=== PATIENT | female | born 1975 ===

== ENCOUNTER 2021-04-08 09:37 | Outpatient (REF) | payer OTHER, SELFPAY ==
[2021-04-08 17:22] LABS: CT PCR NOT DETECTED (Not Detect.); NG PCR NOT DETECTED (Not Detect.)
[2021-04-09 09:43] LABS: BV Int Neg Control Negative (Negative); BV Int Pos Control Positive (Positive)
== END 2021-04-08 09:38 | disposition home or self-care (01) ==
LOC: HO.LAB 09:37
PROVIDERS: Visit Provider Advanced Practice Midwife
DX: Z01.419 Encounter for gynecological examination (general) (routine) without abnormal findings (principal); B37.3 Candidiasis of vulva and vagina; B37.9 Candidiasis, unspecified; J45.909 Unspecified asthma, uncomplicated; Z20.2 Contact with and (suspected) exposure to infections with a predominantly sexual mode of transmission; Z88.0 Allergy status to penicillin; Z79.899 Other long term (current) drug therapy
CPT/HCPCS: 87480; 87491; 87510; 87591; 87660

== ENCOUNTER 2022-04-10 10:56 | Outpatient (REF) | payer OTHER, SELFPAY ==
[2022-04-11 01:21] LABS: CT PCR NOT DETECTED (Not Detect.); NG PCR NOT DETECTED (Not Detect.)
[2022-04-11 08:33] LABS: BV Int Neg Control Negative (Negative); BV Int Pos Control Positive (Positive)
== END 2022-04-10 10:57 | disposition home or self-care (01) ==
LOC: HO.LAB 10:56
PROVIDERS: Visit Provider Advanced Practice Midwife
DX: Z01.419 Encounter for gynecological examination (general) (routine) without abnormal findings (principal); Z11.3 Encounter for screening for infections with a predominantly sexual mode of transmission; Z11.8 Encounter for screening for other infectious and parasitic diseases
CPT/HCPCS: 87480; 87491; 87510; 87591; 87660

== ENCOUNTER 2023-06-17 09:21 | Outpatient (AMB) | payer OTHER, SELFPAY ==
--- NOTE | 2023-06-17 09:24 | MHC.OFFVIS ---
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 Required: No Information Interpreted: non-clinical & clinical Healthcare Liaison: Healthcare Liaison Present (Harjinder) Allergies penicillin V Allergy (Unknown, Verified 06/17/23 09:27) rash Medication List - Last Reconciled 06/17/23 by Celia Contreras CNM albuterol sulfate 90 mcg/actuation 2 puffs inhalation Q6H PRN fluticasone propion-salmeterol 500-50 mcg/dose (Advair Diskus) 1 inh inhalation BID fluticasone propionate 50 mcg/actuation (Flonase Allergy Relief) 1 spray intranasal DAILY Is last menstrual period known: Yes Last menstrual period: 05/15/23 HPI 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 She is sexually active with her she is not worried about any STIs but she excepted testing along with the Pap smear. She does not think she has had a mammogram in a couple of years. She does not do much exercise and she and her her talking about going for daily walk to improve things. She does feel like she eats well. Her only health concern is her asthma and she did have pneumonia last year she does get vaccinated when it is time. [facility] Medical History Asthma Family History Mother HTN (hypertension) Diabetes Father HTN (hypertension) Sleep apnea Social History Alcohol intake: never Patient Tobacco Use Status: Never used Tobacco Gender identity: Female Female Reproductive History Menstrual Age of Menarche: 9 Duration of menses: 8-10 days Date of last menstrual period: 05/15/23 control method: none Total pregnancies: 2 Full term: 2 Number of Living Children: 2 Date of last pap smear: 06/25/18 (negative) Date of Mammogram: 03/19/18 Physical Exam Vital Signs: Last Vital Signs BP 130/80 06/17/23 09:25 BMI result Body Mass Index 35.4 Const General: healthy appearing, comfortable, no acute distress, well developed and alert Nutritional Appearance: average body habitus Orientation/consciousness: patient oriented x3 Limitations: no limitations HEENT Head: Yes normocephalic Neck Neck: Yes normal visual inspection Chest Chest palpation & inspection: normal inspection of the chest Breast/axilla inspection: normal inspection of the breasts and normal inspection of the axillae Breast/axilla palpation: normal palpation of the breasts and normal palpation of the axillae Resp Effort & Inspection: normal respiratory effort GI Inspection: Yes normal to inspection, No Abdominal wall edema and No distended Palpation (GI): Soft to palpation and nontender General: Yes bladder normal to palpation External Female Exam: normal external appearance and normal appearance of the urethra Speculum Exam - Vagina: normal appearance of the vagina, normal palpation and normal vaginal discharge Speculum Exam - Cervix: normal appearance of the cervix, normal palpation and nontender Bimanual exam- vagina & uterus: normal bimanual exam, normal palpation, uterine size normal, bladder normal to palpation, consistency normal, normal palpation, uterine mobility normal, uterine shape normal, No Cervical tenderness present, non-tender and no cervical motion tenderness Bimanual Exam- Adnexa, other: normal adnexae, no masses, normal and No adnexal tenderness Neuro General: patient oriented x3 Assessment & Plan Assessment & Plan (1) Cervical cancer screening: Comment: hx neg paps- last done 2017, due 2022 Code(s): Z12.4 - Encounter for screening for malignant neoplasm of cervix (2) Paty albicans infection: Code(s): B37.9 - Candidiasis, unspecified (3) Yeast infection of the skin: Code(s): B37.2 - Candidiasis of skin and nail (4) Well woman exam with routine gynecological exam: Code(s): Z01.419 - Encounter for gynecological examination (general) (routine) without abnormal findings (5) Perimenopause: Code(s): N95.1 - Menopausal and female climacteric states Plan -----Discussed in this visit the following: healthy balanced diet, regular and consistent exercise, getting recommended health screens, doing the best she can for her particular health concerns, kegel exercises, pap smear screening and followup recommendations, mammography screening and SBE, normal changes in cycles in her life stage--- . Pap was done testing for GC chlamydia trich Gardnerella and Paty was done. Mammogram was ordered. In terms of the area of irritation under her pannus it is consistent with very mild well-controlled yeast she does her best to keep it dry discussed strategies. I am prescribing miconazole nitrate powder for her to use though it is not covered by her insurance but I wrote it down for her so that she can look for it [id number]. We will see her in 1 year. Orders: Orders MM tomosynthesis screening BI Today N95.1 - Menopausal and female climacteric states, Z01.419 - Encounter for gynecological examination (general) (routine) without abnormal findings, Z12.31 - Encounter for screening mammogram for malignant neoplasm of breast Medications: New miconazole nitrate 2% 1 appl topical BID 85 grams 3RF Coding Level of Care Code Est Pt Prev Care 40-64y(57658) Diagnoses Cervical cancer screening Z12.4 Paty albicans infection B37.9 Yeast infection of the skin B37.2 Well woman exam with routine gynecological exam Z01.419 Perimenopause N95.1
[2023-06-17 09:25] VITALS: BP 130/80; BMI 35.4
== END 2023-06-17 10:28 | disposition home or self-care (01) ==
LOC: HO.HWS 09:21
PROVIDERS: PCP Internal Medicine; Visit Provider Advanced Practice Midwife
DX: Z01.419 Encounter for gynecological examination (general) (routine) without abnormal findings (principal); Z12.4 Encounter for screening for malignant neoplasm of cervix; B37.9 Candidiasis, unspecified; B37.2 Candidiasis of skin and nail; N95.1 Menopausal and female climacteric states
CPT/HCPCS: 99396

== ENCOUNTER 2023-06-17 09:21 | Outpatient (REF) | payer OTHER, SELFPAY ==
[2023-06-18 06:16] LABS: CT PCR NOT DETECTED (Not Detect.); NG PCR NOT DETECTED (Not Detect.)
[2023-06-18 12:06] LABS: BV Int Neg Control Negative (Negative); BV Int Pos Control Positive (Positive)
[2023-06-23 23:08] LABS: HPV mRNA E6/E7 rflx Not Detected (Not Detected)
== END 2023-06-17 09:22 | disposition home or self-care (01) ==
LOC: HO.LNP 09:21
PROVIDERS: PCP Internal Medicine; Visit Provider Advanced Practice Midwife
DX: Z01.419 Encounter for gynecological examination (general) (routine) without abnormal findings (principal); Z11.51 Encounter for screening for human papillomavirus (HPV); B37.2 Candidiasis of skin and nail; N95.1 Menopausal and female climacteric states; Z20.2 Contact with and (suspected) exposure to infections with a predominantly sexual mode of transmission
CPT/HCPCS: 0353U; 87480; 87510; 87624; 87660; 88142

== ENCOUNTER 2023-07-23 09:34 | Outpatient (REF) | payer OTHER, SELFPAY | END 2023-07-23 09:35 | disposition home or self-care (01) | LOC: HO.MAMMO 09:34 | PROVIDERS: PCP Internal Medicine; Visit Provider Advanced Practice Midwife | DX: Z12.31 Encounter for screening mammogram for malignant neoplasm of breast (principal) | CPT/HCPCS: 77063; 77067 ==

== ENCOUNTER → 2023-07-23 09:45 | Outpatient (BNV) | payer OTHER, SELFPAY | PROVIDERS: PCP Internal Medicine; Visit Provider Radiology Diagnostic Radiology | DX: Z12.31 Encounter for screening mammogram for malignant neoplasm of breast (principal) | CPT/HCPCS: 77063; 77067 ==

== ENCOUNTER 2023-12-24 08:27 | Outpatient (REF) | payer OTHER, SELFPAY ==
[2023-12-24 11:34] LABS: MANUAL DIFF FLAG NO
[2023-12-24 11:37] LABS: Basophils Absolute Auto 0.1 X10*3/uL (0.0-0.2); Basophils Percent Auto 1.1 % (0-2); Eosinophils Absolute Auto 0.6 X10*3/uL (0.0-0.4); Eosinophils Percent Auto 7.5 % (0-4); Hematocrit 40.9 % (37.0-47.0); Hemoglobin 13.1 g/dl (12.0-16.0); Imm Gran Abs Auto 0.01 X10*3/uL (0.00-0.03); Imm Gran Pct Auto 0.1 % (0.0-0.4); Lymphocytes Absolute Auto 2.2 X10*3/uL (1.2-4.9); Lymphocytes Percent Auto 29.3 % (20-40); Mean Corpuscular Volume 93.6 fL (80.0-98.0); Mean Platelet Volume 11.1 fL (9.4-12.3); Monocytes Absolute Auto 0.8 X10*3/uL (0.1-1.2); Monocytes Percent Auto 11.4 % (2-11); Neutrophils Absolute Auto 3.7 x10*3/uL (2.0-8.3); Neutrophils Percent Auto 50.6 % (45-73); Platelet Count 361 X10*3/uL (160-400); Red Blood Count 4.37 X10*6/uL (4.20-5.50); Red Cell Distribution Width 13.5 % (11.0-16.0); White Blood Count 7.4 X10*3/uL (4.8-10.8)
[2023-12-24 11:45] LABS: Estimated Average Glucose 100 mg/dL; Hemoglobin A1c % 5.1 % (<6.0)
[2023-12-24 12:01] LABS: Alanine Aminotransferase 15 U/L (0-31); Alkaline Phosphatase 80 U/L (39-117); Anion Gap 11 (12-20); Aspartate Amino Transferase 22 U/L (5-31); Bilirubin Total 0.4 mg/dL (0.0-1.0); Blood Urea Nitrogen 8 mg/dL (9-16); Calcium 9.8 mg/dL (8.4-10.2); Carbon Dioxide 31 mmol/L (22-29); Chloride 104 mmol/L (96-108); Cholesterol 190 mg/dL (<200); Estimated Glomerular Filt Rate > 60; Glucose Random 85 mg/dL (60-115); HDL Cholesterol 70 mg/dL (>40); LDL Cholesterol Calculated 110 mg/dL (<100); Potassium 3.9 mmol/L (3.3-5.1); Sodium 142 mmol/L (135-145); Total Protein 7.2 g/dL (6.5-8.0); Triglycerides 54 mg/dL (<150)
[2023-12-24 12:18] LABS: TSH reflex Free T4 1.05 uIU/mL (0.32-4.0)
== END 2023-12-24 08:28 | disposition home or self-care (01) ==
LOC: HO.HHCL 08:27
PROVIDERS: Visit Provider Nurse Practitioner
DX: E66.9 Obesity, unspecified (principal); E07.9 Disorder of thyroid, unspecified
CPT/HCPCS: 36415; 80053; 80061; 83036; 84443; 85025

== ENCOUNTER 2024-03-04 11:58 | Outpatient (REF) | payer OTHER, SELFPAY ==
[2024-03-04 13:58] LABS: Anion Gap 14 (12-20); Blood Urea Nitrogen 9 mg/dL (9-16); Calcium 9.8 mg/dL (8.4-10.2); Carbon Dioxide 29 mmol/L (22-29); Chloride 101 mmol/L (96-108); Estimated Glomerular Filt Rate > 60; Glucose Random 80 mg/dL (60-115); Potassium 3.8 mmol/L (3.3-5.1); Sodium 140 mmol/L (135-145)
== END 2024-03-04 11:59 | disposition home or self-care (01) ==
LOC: HO.HHCL 11:58
PROVIDERS: Visit Provider Nurse Practitioner Family
DX: I10 Essential (primary) hypertension (principal)
CPT/HCPCS: 36415; 80048

== ENCOUNTER 2024-08-18 10:02 | Outpatient (AMB) | payer OTHER, SELFPAY ==
--- NOTE | 2024-08-18 10:00 | MHC.OFFVIS ---
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: Injection Molding Supervisor Present Information Interpreted: clinical only Manager Knowledge: Manager Knowledge Present Allergies penicillin V Allergy (Unknown, Verified 08/18/24 10:08) rash Medication List - Last Reconciled 08/18/24 by Celia Contreras CNM albuterol sulfate 90 mcg/actuation 2 puffs inhalation Q6H PRN fluticasone propion-salmeterol 500-50 mcg/dose (Advair Diskus) 1 inh inhalation BID fluticasone propionate 50 mcg/actuation (Flonase Allergy Relief) 1 spray intranasal DAILY Is last menstrual period known: Yes Last menstrual period: 08/12/24 HPI HPI 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 She is not having any problems at all she feels she is doing very well she and her are enjoying their time together now the children are out of the house her youngest is 24. He had a vasectomy so she does not need control she is starting to notice her periods changing 1 month it will be 4 days and next month might be 1 day but they come regular. She is not having any hot flashes that she notices she has been losing weight a little bit and so problems she had with perspiration from underneath her pannus are minimized and she is paying attention to material in clothing in all the things we talked about the Monistat powder helped last year, and she only needed to use it once. She has no concerns about infections and declines testing. Her last Pap smear was negative in 2022 and she has never had an abnormal Pap smear. Go for walks for exercise. Her primary care provider's here at the [facility] and she has no other health concerns. She has her next mammogram scheduled. [facility] Medical History Asthma Family History Mother HTN (hypertension) Diabetes Father HTN (hypertension) Sleep apnea Social History Alcohol intake: never Patient Tobacco Use Status: Never used Tobacco Gender identity: Female Female Reproductive History Menstrual Age of Menarche: 9 Duration of menses: 3-5 days Date of last menstrual period: 08/12/24 control method: none Total pregnancies: 2 Full term: 2 Date of last pap smear: 06/19/23 (negative,previous pap 2018 WNL) Date of Mammogram: 07/23/23 (negative) Physical Exam Vital Signs: Last Vital Signs BP 118/76 08/18/24 10:03 BMI result Body Mass Index 32.9 Const General: healthy appearing, comfortable, no acute distress, well developed and alert Nutritional Appearance: average body habitus Orientation/consciousness: patient oriented x3 Limitations: no limitations HEENT Head: Yes normocephalic Neck Neck: Yes normal visual inspection Chest Chest palpation & inspection: normal inspection of the chest Breast/axilla inspection: normal inspection of the breasts and normal inspection of the axillae Breast/axilla palpation: normal palpation of the breasts and normal palpation of the axillae Resp Effort & Inspection: normal respiratory effort GI Inspection: Yes normal to inspection, No Abdominal wall edema and No distended Palpation (GI): Soft to palpation and nontender Other: External exam within it is vagina pink and moist cervix multiparous normal appearing clear discharge. Uterus midposition to anterior mobile nontender adnexa not enlarged good tone with Kegel. General: Yes bladder normal to palpation External Female Exam: normal external appearance and normal appearance of the urethra Speculum Exam - Vagina: normal appearance of the vagina, normal palpation and normal vaginal discharge Speculum Exam - Cervix: normal appearance of the cervix, normal palpation and nontender Bimanual exam- vagina & uterus: normal bimanual exam, normal palpation, uterine size normal, bladder normal to palpation, consistency normal, normal palpation, uterine mobility normal, uterine shape normal, No Cervical tenderness present, non-tender and no cervical motion tenderness Bimanual Exam- Adnexa, other: normal adnexae, no masses, normal and No adnexal tenderness Neuro General: patient oriented x3 Results Reviewed Results Reviewed: Name: Annmarie Cortez Vicki Age/Sex: 48/F Attending: Celia Contreras CNM : 1975 Submitted by: Celia Contreras CNM Copies to: Lita Angel MD MR #: [id number] Status: DEP REF Collected: 06/17/23 Location: [facility] Received: 06/19/23 Interpretation Satisfactory for evaluation. Negative for intraepithelial lesion or malignancy. HPV mRNA E6/E7: NOT DETECTED This assay detects E6/E7 viral messenger RNA (mRNA) from 14 high-risk HPV types (16, 18, 31, 33, 35, 39, 45, 51, 52, 56, 58, 59, 66, 68) HPV testing performed by [facility], [place], [place]. See reference laboratory portion of the EMR for entire report. Clinical Information LMP:05/15/23 Previous PAP test:2018, WNL Material Received ThinPrep-Cervical Copies To Lita Angel MD [address] [place] [id number] Celia Contreras [address] Ewing [address] [place] [address] Electronically Signed By: Kristina Knight 07/04/23 7048 The Pap Test is a screening procedure with the inherent possibility of both false negative and false positive results. Results should be interpreted in the context of historic and current clinical findings. Reliability of the Pap Test is enhanced by performing the test on a regular repetitive basis. Patient: Annmarie Cortez Age/Sex: 48/F MR#: [id number] Page 1 of 1 Assessment & Plan Assessment & Plan (1) Perimenopause: Code(s): N95.1 - Menopausal and female climacteric states Category: Medical (2) Cervical cancer screening: Comment: hx neg paps- last done 2017, 2022= negative with negative HPV. Code(s): Z12.4 - Encounter for screening for malignant neoplasm of cervix Category: Medical (3) Well woman exam with routine gynecological exam: Code(s): Z01.419 - Encounter for gynecological examination (general) (routine) without abnormal findings Category: Medical Plan -----Discussed in this visit the following: healthy balanced diet, regular and consistent exercise, getting recommended health screens, doing the best she can for her particular health concerns, kegel exercises, pap smear screening and followup recommendations, mammography screening and SBE, normal changes in cycles in her life stage--- . 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 Coding Level of Care Code Est Pt Prev Care 40-64y(27566) Diagnoses Perimenopause N95.1 Cervical cancer screening Z12.4 Well woman exam with routine gynecological exam Z01.419
[2024-08-18 10:03] VITALS: BP 118/76; BMI 32.9
== END 2024-08-18 11:19 | disposition home or self-care (01) ==
PROVIDERS: PCP Internal Medicine; Visit Provider Advanced Practice Midwife
DX: Z01.419 Encounter for gynecological examination (general) (routine) without abnormal findings (principal); N95.1 Menopausal and female climacteric states
CPT/HCPCS: 99396

== ENCOUNTER → 2024-08-18 10:02 | Outpatient (BNVA) | payer OTHER, SELFPAY | PROVIDERS: PCP Internal Medicine; Visit Provider Advanced Practice Midwife ==

== ENCOUNTER 2024-10-14 10:54 | Outpatient (REF) | payer OTHER, SELFPAY ==
--- NOTE | ~2024-10-14 | XR_ITS ---
EXAMINATION: XR CHEST CLINICAL INFORMATION: Influenza/ asthma exacerbation, ro pneumonia COMPARISON: None available. TECHNIQUE: 2 views of the chest were obtained. FINDINGS: Heart is normal in size. There is blunting of the left costophrenic angle with hazy opacity. Right lung is clear. XR/XR chest 2V IMPRESSION: Hazy opacity at the left lower lobe Electronically signed by: Mau Golden MD 10/16/2024 10:33 AM RAFAELA
--- OUTSIDE RECORDS SUMMARY | 2024-10-14 11:14 | XMS_ITS | Continuity of Care Document ---
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 Primary Care Provider [phone] Assessment Encounter Date Assessment Date Assessment LastModified by Organization Details LastModified Time 08/05/2024 08/05/2024 49-year-old female presents for evaluation of tinnitus and vertigo. Audiometric testing was obtained today showing essentially normal hearing bilaterally with normal tympanogram. Otologic exam is unremarkable. 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 I have recommended a CT scan of the temporal bone for further evaluation. Could possibly be related to migraine which we can explore further if CT is normal. She understands and agrees to this plan and has no further questions. Not available 08/05/2024 14:31:11 Plan of Treatment Reminders Order Date Submit Date Provider Last Modified By Organization Details Last Modified Time Details Appointments None recorded. Lab None recorded. Referral None recorded. Procedures None recorded. Surgeries None recorded. Imaging CT, temporal bone, w/o contrast 2023 024 VALDEZ [facility], [address] [place], [address], 15:28:37 Medication Orders None recorded. Patient TargetsNo targets recorded. Patient InstructionsNo instructions recorded. Reason for Referral None Reported. Results Created Date Observation Date Name Description Value Unit Range Abnormal Flag Note LastModifiedBy Organization Detail LastModifiedTime 08/05/20 24 audio gram No observ ation record ed. [email or web address] Not Available 08/2024 14:03:31 08/05/[address], tempo ral bone, w/o contr ast No observ ation record ed. [place] [id number] [facility] [address], [address], 08/05/2024 14:31:33 Result Notes None recorded. Problems Name Problem SNOMED Code Status Onset Date Resolution Date Notes Provider Name and Address Organization Details Recorded Time Abnormal auditory perception 36756111 Active 024 Rossi greenberg [place] [facility] 13:03:12 Problem Notes None recorded. Procedures Surgical History Date Name Laterality Status Provider Name and Address Organization Details Recorded Time 08/05/2024 Comp Audio with Tymps (44403 & 58164) completed Rossi Langley MA [facility] 08/05/2024 13:03:06 Imaging Results Imaging Date Name Status LastModified by Organiz ation Details LastModified Time 08/05/2024 CT, temporal bone, w/o contrast [place] [id number] [address] [address], [address], 08/05/2024 14:31:33 Procedure Notes None recorded. Medical Equipment None Reported. Allergies Allergen ID Allergen Name Allergen Category Reaction Reaction Severity Criticality Documentation Date Start Date Code Code System Note Provider Name and Address Organization Details Recorded Time 069112 Medicinal product containin g penicilli n and acting as antibacte rial agent (product) medicatio n Not available Not available Not available 08/05/2024 15298 05 SNOMED Chayito greenberg [place] [facility] 13:36:42 Medications Name Sig Start Date Stop Date Status Note LastModified by Organization Details LastModified Time cetirizine 10 mg tablet TAKE 1 TABLET BY MOUTH EVERY DAY active Not Available Not Available No t Available prednisone 20 mg tablet TAKE 2 TABLETS BY MOUTH EVERY DAY FOR 5 DAYS 08/05 completed Not Available Not Available Not Available meclizine 12.5 mg tablet TAKE 1 TABLET BY MOUTH AT BEDTIME NEEDED FOR DIZZINESS active Not Available Not Available No t Available fluticasone 500 mcg-salmete rol 50 mcg/dose blistr powdr for inhalation INHALE 1 PUFF BY MOUTH TWICE DAILY, RINSE MOUTH AFTER USING. active Not Available Not Available No t Available ibuprofen 400 mg tablet TAKE 1 TABLET BY MOUTH EVERY 6 TO 8 HOURS NEEDED active Not Available Not Available No t Available hydrocortis one 2.5 % topical cream APPLY PEA SIZED AMOUNT TO SKIN TWICE DAILY FOR ONE WEEK active Not Available Not Available No t Available albuterol sulfate HFA 90 mcg/actuati on aerosol inhaler INHALE 2 PUFFS BY MOUTH EVERY 4 TO 6 HOURS NEEDED active Not Available Not Available No t Available ondansetron 4 mg disintegrat ing tablet DISSOLVE 1 TABLET BY MOUTH EVERY 8 HOURS NEEDED FOR NAUSEA AND VOMITING active Not Available Not Available No t Available hydrochloro thiazide 12.5 mg tablet TAKE 1 TABLET BY MOUTH EVERY DAY active Not Available Not Available No t Available Vitals Date Recorded Body height Body mass index (BMI) Body weight Provider Name and Address Organization Details Last Updated DateTime 08/05/2024 165.1 cm 32.1 kg/m2 98545.33 g Chayito Gonzalez [place] [facility] 08/05/2024 13:36:23 Social History None recorded. Functional Status None recorded. Mental Status None recorded. Family History Nothing Reported. Medical History Condition Response Emphysema Y Allergies/Hayfever Y Hypertension Y Asthma Y Gynecological HistoryNo gynecological history recorded. Obstetrics History GPAL:G 0 P 0 0 0 0 Past Encounters Encounter ID Performer Location Encounter Start Date Encounter Closed Date Diagnosis/Indication Diagnosis SNOMED-CT Code Diagnosis ICD10 Code [id number] SILAS HERNANDEZ PA-C [facility] [address] [address] 08/05/2024 12:41:07 08/05/2024 14:00:23 Abnormal auditory perception 84328521 H93.299 Health Concerns Section Related Observation LastModified by Organization Detai ls LastModified Time None Recorded Concern Status LastModified by Organization Details LastModified Time None Recorded Payers Encounter Date Sequence Insurance Name Policy Number Policy Vazquez Covered Member ID Vazquez Member ID Guarantor Name 08/05/2024 1 [facility] [id number] 1 Annmarie Cortez [id number] Annmarie Cortez Notes Date Note Type Note Provider Name and Address Organization Details Recorded Time 08/05/2024 text/html 49-year-old star dill presents for evaluation of bilateral tinnitus and vertigo. Patient has had bilateral tinnitus for about 1.5 years. She describes the vertigo as room spinning that is triggered by loud noises such as car speakers or sudden noises in a restaurant. The spinning will last for about a half an hour and she feels generally unwell after. Sometimes triggers nausea and vomiting. Has a history of migraine but states they have been relatively nonexistent over the last 10 to 15 years. SILAS HERNANDEZ PA-C [address] [place] [address], [place], [address], [facility] - [facility] 08/05/2024 14:32:34 OBGyn Episode No OBEpisode recorded.
--- OUTSIDE RECORDS SUMMARY | 2024-10-14 11:14 | XMS_ITS | Data Portability ---
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 [email or web address] Not available 08/05/2024 14:31:11 Plan of Treatment Reminders Order Date Submit Date Provider Last Modified By Organization Details Last Modified Time Details Appointments None recorded. Lab None recorded. Referral None recorded. Procedures None recorded. Surgeries None recorded. Imaging CT, temporal bone, w/o contrast 2023 024 VALDEZ [facility], [address] [place] [address], [place], [address], 15:28:37 Medication Orders None recorded. Patient TargetsNo targets recorded. Patient InstructionsNo instructions recorded. Reason for Referral None Reported. Results Created Date Observation Date Name Description Value Unit Range Abnormal Flag Note LastModifiedBy Organization Detail LastModifiedTime 08/05/20 24 audio gram No observ ation record ed. [email or web address] Not Available 08/2024 14:03:31 08/05/[address], tempo ral bone, w/o contr ast No observ ation record ed. [place] [id number] [address], [address], 08/05/2024 14:31:33 Result Notes None recorded. Problems Name Problem SNOMED Code Status Onset Date Resolution Date Notes Provider Name and Address Organization Details Recorded Time Abnormal auditory perception 41736681 Active 024 Rossi greenberg [place] [facility] 13:03:12 Problem Notes None recorded. Procedures Surgical History Date Name Laterality Status Provider Name and Address Organization Details Recorded Time 08/05/2024 Comp Audio with Tymps (27390 & 62512) completed Rossi Langley [facility] 08/05/2024 13:03:06 Imaging Results Imaging Date Name Status LastModified by Organiz ation Details LastModified Time 08/05/2024 audiogram completed [facility] Information not available 08/05/2024 14:03:31 08/05/2024 CT, temporal bone, w/o contrast [place] [id number] [facility] [address], [address], 08/05/2024 14:31:33 Procedure Notes None recorded. Medical Equipment None Reported. Allergies Allergen ID Allergen Name Allergen Category Reaction Reaction Severity Criticality Documentation Date Start Date Code Code System Note Provider Name and Address Organization Details Recorded Time 264864 Medicinal product containin g penicilli n and acting as antibacte rial agent (product) medicatio n Not available Not available Not available 08/05/2024 79938 05 SNOMED Keichla Carlos greenberg [place] [facility] 13:36:42 Medications Name Sig Start Date [...] Updated DateTime 08/05/2024 165.1 cm 32.1 kg/m2 82872.33 g Chayito Gonzalez [place] [facility] 08/05/2024 13:36:23 Social History None recorded. Functional Status None recorded. Mental Status None recorded. Family History Nothing Reported. Medical History Condition Response Allergies/Hayfever Y Emphysema Y Asthma Y Hypertension Y Gynecological HistoryNo gynecological history recorded. Obstetrics History GPAL:G 0 P 0 0 0 0 Past Encounters Encounter ID Performer Location Encounter Start Date Encounter Closed Date Diagnosis/Indication Diagnosis SNOMED-CT Code Diagnosis ICD10 Code [id number] SILAS HERNANDEZ PA-C [facility] [address] [address] 08/05/2024 12:41:07 08/05/2024 14:00:23 Abnormal auditory perception 49960754 H93.299 Health Concerns Section Related Observation LastModified by Organization Detai ls LastModified Time None Recorded Concern Status LastModified by Organization Details LastModified Time None Recorded Advance Directives Directive None Recorded Payers Encounter Date Sequence Insurance Name Policy Number Policy Vazquez Covered Member ID Vazquez Member ID Guarantor Name 08/05/2024 1 [facility] [id number] 1 Annmarie Cortez [id number] Annmarie Cortez Notes Date Note Type Note [...] 10 to 15 years. SILAS HERNANDEZ PA-C [address] [place] [address], [place], [address], [facility] - [facility] 08/05/2024 14:32:34 OBGyn Episode No OBEpisode recorded.
== END 2024-10-14 10:55 | disposition home or self-care (01) ==
LOC: HO.HHCX 10:54
PROVIDERS: Visit Provider Internal Medicine
DX: J10.1 Influenza due to other identified influenza virus with other respiratory manifestations (principal)
CPT/HCPCS: 71046

== ENCOUNTER 2024-11-04 10:50 | Outpatient (REF) | payer OTHER, SELFPAY | END 2024-11-04 10:51 | disposition home or self-care (01) | LOC: HO.MAMMO 10:50 | PROVIDERS: PCP Internal Medicine; Visit Provider Nurse Practitioner | DX: Z12.31 Encounter for screening mammogram for malignant neoplasm of breast (principal) | CPT/HCPCS: 77063; 77067 ==

== ENCOUNTER → 2024-11-04 11:00 | Outpatient (BNV) | payer OTHER, SELFPAY | PROVIDERS: PCP Internal Medicine; Visit Provider Internal Medicine | DX: Z12.31 Encounter for screening mammogram for malignant neoplasm of breast (principal) | CPT/HCPCS: 77063; 77067 ==

== ENCOUNTER 2024-11-09 11:41 | Outpatient (REF) | payer OTHER, SELFPAY ==
[2024-11-09 13:24] LABS: Anion Gap 11 (12-20); Blood Urea Nitrogen 8 mg/dL (9-16); Calcium 9.3 mg/dL (8.4-10.2); Carbon Dioxide 29 mmol/L (22-29); Chloride 105 mmol/L (96-108); Estimated Glomerular Filt Rate > 60; Glucose Random 81 mg/dL (60-115); Magnesium 2.3 mg/dL (1.6-2.6); Potassium 3.5 mmol/L (3.3-5.1); Sodium 141 mmol/L (135-145)
[2024-11-09 13:43] LABS: HIV AB/AG Nonreactive (Nonreactive); HIV Num 1 0.07 S/CO (0.00-0.99); ~HepC Num1 0.08 S/CO (0.00-0.79); ~Hepatitis C Antibody Nonreactive (Nonreactive)
[2024-11-09 13:45] LABS: Creatinine Urine 22.47 mg/dL; Microalbumin Urine < 5.0 mg/L
== END 2024-11-09 11:42 | disposition home or self-care (01) ==
LOC: HO.HHCL 11:41
PROVIDERS: Visit Provider Nurse Practitioner
DX: Z13.9 Encounter for screening, unspecified (principal); R42 Dizziness and giddiness; I10 Essential (primary) hypertension
CPT/HCPCS: 36415; 80048; 82570; 83735; 86803; 87389

== ENCOUNTER → 2024-11-10 09:00 | Outpatient (BNV) | payer OTHER, SELFPAY | PROVIDERS: PCP Internal Medicine; Visit Provider Radiology Vascular & Interventional Radiology | DX: R42 Dizziness and giddiness (principal) | CPT/HCPCS: 70553 ==

== ENCOUNTER 2024-11-10 09:02 | Outpatient (REF) | payer OTHER, SELFPAY ==
--- NOTE | ~2024-11-10 | MR_ITS ---
CLINICAL HISTORY: r o menieres MR Brain with and without gadolinium. Thin slice high-resolution imaging through the IAC's. Comparison: None Findings: No restricted diffusion. No intracranial mass or hemorrhage. No midline shift. No hydrocephalus. Vascular flow voids are intact. No cerebellopontine angle mass or abnormal enhancement along the visualized cranial nerves. Note is made of a type 2 vascular loop on the right. Orbital contents are unremarkable. Moderate mucoperiosteal thickening of the paranasal sinuses with small volume fluid within the maxillary sinuses. No focal bone lesion. IMPRESSION: No cerebellopontine angle mass or abnormal enhancement. There is a type 2 vascular loop on the right. There is moderate paranasal sinus disease. This document has been electronically signed by: Kory Schumacher MD on 11/11/2024 08:29:14
[2024-11-10] MEDS: gadobutroL 10 ML VIAL IVPUSH (10:06)
== END 2024-11-10 09:03 | disposition home or self-care (01) ==
LOC: HO.MRI 09:02
PROVIDERS: PCP Internal Medicine; Visit Provider Nurse Practitioner
DX: R42 Dizziness and giddiness (principal)
CPT/HCPCS: 70553; A9585

== ENCOUNTER 2024-12-20 10:22 | Outpatient (REF) | payer OTHER, SELFPAY ==
--- NOTE | ~2024-12-20 | XR_ITS ---
EXAMINATION: XR CHEST 2 VIEWS HISTORY: 3 month h/o cough, abnormal CXR 10/14/2024 COMPARISON: Comparison is made with the prior examination dated 10/14/2024. FINDINGS: PA and lateral views of the chest are submitted. There is linear scarring at the left lung base. The lungs are otherwise clear. The previously seen left lower lobe pneumonia has resolved. There is no pleural effusion, pneumothorax, or pulmonary vascular congestion. The heart is normal in size. There is degenerative disc disease of the spine. XR/XR chest 2V IMPRESSION: No acute cardiopulmonary abnormality. The previously seen left lower lobe pneumonia has resolved. Electronically signed by: Ruben Gary MD 12/20/2024 11:08 AM RAFAELA
--- OUTSIDE RECORDS SUMMARY | 2024-12-20 12:13 | XMS_ITS | Encounter Summary ---
Author Organization [employer] Address [address] [place] [address] Care Team Providers Care Director Call Center Sales Name Role Phone Nuvia Irwin CONTROL CHEMIST Primary Care Provider [phone] Merissa Roque NP Primary Care Provider [phone] Reason for Visit * Reason Onset Date Comments r/s appt 08/25/2023 Encounter Details Date Type Department Care Team (Late st Contact Info) Description 08/25/2023 Telephone [facility] [address], [place] [phone] [facility] [address] [place] [address] r/s appt Social History Tobacco Use Types Packs/Day Years Used Date Smoking Tobacco: Never Passive Smoke Exposure: Never Smokeless Tobacco: Never Comments Unknown Sex and Gender Information Value Date Recorded Sex Assigned at Female 08/25/2022 10:20 AM EDT Legal Sex Female 10:20 AM EDT Gender Identity Female 08/25/2022 10:20 AM EDT Sexual Orientation Straight 08/25/2022 10 :20 AM EDT documented as of this encounter Miscellaneous Notes * Telephone Encounter - Mahnaz Blake - 08/25/2023 1:51 PM EDT TC from pt calling to R/S new pt appt from 01/30/2023. PCP DR. Irwin documented in this encounter Plan of Treatment Upcoming Encounters Date Type Department Care Team (Late st Contact Info) Description 01/13/2025 9:15 AM EDT Office Visit [facility] [address] [place] [address] Merissa Roque NP [address] [place] [address] documented as of this encounter Visit Diagnoses Not on filedocumented in this encounter Care Teams Director Call Center Sales Relationship Specialty Start Date End Date Nuvia Irwin FNP [address] [place] [id number] PCP - General Family Medicine 12/30/22 11/25/23 Merissa Roque NP [address] [place] [phone] PCP - General Family Medicine 12/22/23 documented as of this encounter
--- OUTSIDE RECORDS SUMMARY | 2024-12-20 12:13 | XMS_ITS | Data Portability ---
Author Organization [place] - [facility], [facility] Address [address] [place] [id number] Care Team Providers Care Soda Dialyzer Name Role Phone [facility] Primary Care Provider Assessment Encounter Date Assessment Date Assessment LastModified [...] this plan and has no further questions. [email or web address] Not available 08/05/2024 14:31:11 Plan of Treatment Reminders Order Date Submit Date Provider Last Modified By Organization Details Last Modified Time Details Appointments None recorded. Lab None recorded. Referral None recorded. Procedures None recorded. Surgeries None recorded. Imaging CT, temporal bone, w/o contrast 2023 024 [facility], [address] [place] [address], [place], [phone], 15:28:37 Medication Orders None recorded. Patient TargetsNo targets recorded. Patient InstructionsNo instructions recorded. Reason for Referral None Reported. Results Created Date Observation Date Name Description Value Unit Range Abnormal Flag Note LastModifiedBy Organization Detail LastModifiedTime 08/05/20 24 audio gram No observ ation record ed. [email or web address] Not Available 08/2024 14:03:31 08/05/[address], tempo ral bone, w/o contr ast No observ ation [place] ed. [place] [id number] [address] [address], [address], 08/05/2024 14:31:33 Result Notes None recorded. Problems Name Problem SNOMED Code Status Onset Date Resolution Date Notes Provider Name and Address Organization Details Recorded Time Abnormal auditory perception 50387425 Active 024 Rossi greenberg [place] [facility] 13:03:12 Problem Notes None recorded. Procedures Surgical History Date Name Laterality Status Provider Name and Address Organization Details Recorded Time 08/05/2024 Comp Audio with Tymps (12183 & 01540) completed Rossi Langley MA [facility] 08/05/2024 13:03:06 Imaging Results Imaging Date Name Status LastModified by Organiz ation Details LastModified Time 08/05/2024 audiogram completed [facility] Information not available 08/05/2024 14:03:31 08/05/2024 CT, temporal bone, w/o contrast [place] [id number] [address] [address], [address], 08/05/2024 14:31:33 Procedure Notes None recorded. Medical Equipment None Reported. Allergies Allergen ID Allergen Name Allergen Category Reaction Reaction Severity Criticality Documentation Date Start Date Code Code System Note Provider Name and Address Organization Details Recorded Time 347318 Product containin g penicilli n (product) medicatio n Not available Not available Not available 08/05/2024 09187 8001 SNOMED Keichla Carlos greenberg MA [facility] 13:36:42 Medications Name Sig Start Date Stop [...] Updated DateTime 08/05/2024 165.1 cm 32.1 kg/m2 05731.33 g Chayito Gonzalez [place] - [facility] 08/05/2024 13:36:23 Social History None recorded. Functional Status None recorded. Mental Status None recorded. Family History Nothing Reported. Medical History Condition Response Allergies/Hayfever Y Emphysema Y Asthma Y Hypertension Y Gynecological HistoryNo gynecological history recorded. Obstetrics History GPAL:G 0 P 0 0 0 0 Past Encounters Encounter ID Performer Location Encounter Start Date Encounter Closed Date Diagnosis/Indication Diagnosis SNOMED-CT Code Diagnosis ICD10 Code Diagnosis Note [id number] SILAS HERNANDEZ PA-C [facility] [address] [phone] 08/05/2024 12:41:07 08/05/2024 14:00:23 Abnormal auditory perception 55632001 H93.299 Audiologic al evaluation results: Right ear: {{Normal* Normal through 2 kHz Mild M oderate Mo derately-s evere Carly re Profoun d}} {{hearing* sloping to a mild slopi ng to a moderate s loping to moderately severe slo ping to severe slo ping to profound f lat high frequency low frequency mid frequency cookie bite rene curve}} {{with* se nsorineura l hearing loss with condu 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 Left ear: {{Normal N ormal through 2 kHz Mild M oderate Mo derately-s evere Carly re Profoun d Essentia lly normal#}} {{hearing* sloping to a mild slopi ng to a moderate s loping to moderately severe slo ping to severe slo ping to profound f lat high frequency low frequency mid frequency cookie bite rene curve}} {{with* se nsorineura l hearing loss with condu 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 Tympanomet ry: Right Ear:{{Type A* Type As Type Ad Type C Type C, shallow & rounded Ty pe B Type B with large volume Cou ld not maintain a hermetic seal}} Left Ear:{{Type A* Type As Type Ad Type C Type C, shallow & rounded Ty pe B Type B with large volume Cou ld not maintain a hermetic seal}} Health Concerns Section Related Observation LastModified by Organization Detai ls LastModified Time None Recorded Concern Status LastModified by Organization Details LastModified Time None Recorded Advance Directives Directive None Recorded Payers Encounter Date Sequence Insurance Name Policy Number Policy Vazquez Covered Member ID Vazquez Member ID Guarantor Name 08/05/[address] [place] [address] [id number] Annmarie Cortez [id number] Annmarie Cortez Notes Date Note Type Note [...] 10 to 15 years. SILAS HERNANDEZ PA-C [address] [place] [address], [id number], [place] - [facility] 08/05/2024 14:32:34 OBGyn Episode No OBEpisode recorded.
--- OUTSIDE RECORDS SUMMARY | 2024-12-20 12:13 | XMS_ITS | Clinical Summary ---
Author Organization [employer] Address [address] [facility] [address] [place] [address] Care Team Providers Care Rail Bonder Name Role Phone Merissa Roque NP Primary Care Provider [phone] Allergies Active Allergy Reactions Criticality Noted Date Comments Penicillin G 12/23/2023 rash Medications ibuprofen 400 MG tablet TAKE 1 TABLET BY MOUTH EVERY 6 TO 8 HOURS NEEDED 90 tablet 024 Active fluticasone (Flonase Allergy Relief) 50 MCG/ACT nasal spray Administer into affected nostril(s). 020 Active naloxone (Narcan) 4 mg/0.1 mL nasal spray FOR SUSPECTED OPIOID OVERDOSE. SPRAY 0.1mL IN ONE NOSTRIL. REPEAT IN ALTERNATE NOSTRIL 2-3 MINUTES IF NEEDED. SEEK MEDICAL ATTENTION IMMEDIATELY EVEN IF PATIENT RESPONDS. 023 Active Multiple Vitamin (MULTIVITAMIN ADULT PO) Daily, 0 Refills, Maintenance, 08/21/21 10:51:00 EDT, Partial fill upon patient request if the prescription is for a schedule II opioid drug. 021 Active hydrocortisone 2.5 % cream Apply pea sized amount to skin bid for 1 week 15 g 024 Active cetirizine (ZyrTEC) 10 MG tabletIndications :Seasonal allergies Take 1 tablet (10 mg) by mouth Once per day. 30 tablet 2 024 Active ondansetron ODT (Zofran-ODT) 4 MG disintegrating tablet Take 1 tablet (4 mg) by mouth every 8 (eight) hours if needed for nausea or vomiting. 20 tablet 2 Active Fluticasone-Salme terol 500-50 MCG/ACT aerosol powder INHALE 1 PUFF BY MOUTH TWICE DAILY, RINSE MOUTH AFTER USING. 180 each 3 Active hydroCHLOROthiazi de 12.5 MG tabletIndications :HTN (hypertension), benign TAKE 1 TABLET BY MOUTH EVERY DAY 30 tablet 1 Active Blood Pressure kit 1 each 2 times daily. 1 kit 025 2025 Active predniSONE (Deltasone) 20 MG tablet Take 2 tablets (40 mg) by mouth Once per day for 5 days. 10 tablet 2024 Active albuterol (2.5 MG/3ML) 0.083% nebulizer solution Take 3 mL (2.5 mg) by nebulization every 6 (six) hours if needed for wheezing or shortness of breath. 75 mL 3 2025 Active cefpodoxime (Vantin) 200 MG tablet Take 1 tablet (200 mg) by mouth 2 times daily for 5 days. 10 tablet 025 2024 Active azithromycin (Zithromax Z-Wes) 250 MG tablet Take 2 tablets once on day 1, then 1 tablet 1x/day for 4 days. 6 tablet Active albuterol 108 (90 Base) MCG/ACT inhaler INHALE 2 PUFFS BY MOUTH EVERY 4 TO 6 HOURS NEEDED 8.5 g 3 Active Spacer/Aero-Holdi ng Chambers (OptiChamber Erika) misc 1 each every 4 (four) hours if needed (asthma). 1 each Active Nebulizers misc 1 kit Every 4-6 hours as needed (shortness of breath, wheezing). Accerlon nebulizer given in walk in 12/20/24 education provided Active albuterol 108 (90 Base) MCG/ACT inhaler INHALE 2 PUFFS BY MOUTH EVERY 4 TO 6 HOURS NEEDED 8.5 g 1 024 2024 Discontinued(R eorder (will not trigger notification to Pharmacy)) hydroCHLOROthiazi de 12.5 MG tabletIndications :HTN (hypertension), benign TAKE 1 TABLET BY MOUTH EVERY DAY 30 tablet 1 024 2024 Discontinued Hospital, Clinic, or Other Facility Administered Medication Ordered Dose Route Frequency Start Date End Date Status albuterol (2.5 MG/3ML) 0.083% nebulizer solution 2.5 mgIndications:Mild intermittent asthma with exacerbation 2.5 mg NEBULIZATION Once 12/20/2024 12/20/2024 Ended predniSONE (Deltasone) tablet 40 mgIndications:Mild intermittent asthma with exacerbation 40 mg PO Once 12/20/2024 12/20/2024 Ended Active Problems Problem Noted Date Diagnosed Date Mild intermittent asthma with exacerbation 10/11 Assessment & Plan (10/11/2024 5:03 PM EST): Sec to Influenza Use albuterol inh Q4h prn sob Get CXR if sxs do not improve within 48h antivirals. Influenza A 10/11/2024 Assessment & Plan (10/11/2024 5:03 PM EST): 48h+ today, will rx Tamiflu to start SHAUNNA Rest (sleep at least 8 hours a night). Out of work this week until she completes antiviral Hydrate with plenty of water (avoid caffeine and alcohol). Use saline nose drops to loosen mucus Take Acetaminophen (Tylenol??)/Ibuprofen as needed to reduce fever, headache, body aches or discomfort Gargle with salt water and use throat sprays/lozenges for throat pain. Use heated, humidified air. If you do not have a humidifier, take hot showers. Cover coughs and sneezes using the crook of your elbow. Use albuterol tid x 5d or up to Q4h rn SOB/cough HTN (hypertension), benign 03/04/2024 Assessment & Plan (03/07/2024 7:27 PM EDT): Will initiate hydrochlorothiazide in case there is benefit in vetigo tinnitus symptoms, labs ordered today and in future, Medication Indications, side effects and duration of therapy reviewed, pt aware to call clinic for worsening symptoms or failure to resolve Seasonal allergies 03/04/2024 Assessment & Plan (03/07/2024 7:29 PM EDT): Trial topical nasal steroid in case it is helpful for ear fullness, Medication Indications, side effects and duration of therapy reviewed, pt aware to call clinic for worsening symptoms or failure to resolve Vertigo 03/04/2024 Assessment & Plan (03/07/2024 7:28 PM EDT): Bppv, bothersome to patient, upcoming ent, will attempt to facilitate earlier visit Routine adult health maintenance 01/12/2024 Assessment & Plan (02/23/2024 3:31 PM EDT): -labs competed 11/2023 reviewed and lifestyle interventions re-enforced Assessment & Plan (01/12/2024 11:50 AM EDT): -mammogram: 06/2023 BI-RADS BI-RADS 1 -Negative; scattered areas of fibroglandular density (ACR BI-RADS breast composition Category b -Colonoscopy: 11/2023 cologuard ordered -Dexa scan: not due -Cervical cancer screen: 05/2023: cytology negative HPV no detected. Due 5 years Asthma 12/23/2023 Lung mass 12/23/2023 Overview (12/23/2023): [facility] CT: 3mm, noncalcified, follow-up depends they write on the clinical scendario, consider followup imaging at least iwthin the 12 months . alspo scan mentions some mild scarring/atelectasis, right modd lobe, and both lower lobes, associated with trace free fluid Mass of thyroid gland 12/23/2023 Overview (12/23/2023): per 2006 CT. US recommended ( follow-up uncertain, pending records) TSH OK 2014 Assessment & Plan (12/23/2023 6:03 PM EST): -Patient reports discharge from endocrinology -no evidence of goiter, thyroid enlargement noted on physical exam -TSH ordered to eval function -will obtain endocrine notes Tinnitus 12/23/2023 Overview (12/23/2023): per [facility] encounter reason ( per ICD-9 code) Assessment & Plan (02/23/2024 9:02 AM EDT): -normal PE -no ototoxic medications noted on medication record -ENT referral placed for further evaluation Assessment & Plan (01/12/2024 11:39 AM EDT): -symptom not related to current medication use -benign physical exam -may be due to elevated BP -will investigate work-up options and consider ENT referral if necessary -follow-up 1 month Dizziness 12/23/2023 Overview (12/23/2023): [facility] 2012 Assessment & Plan (02/23/2024 9:06 AM EDT): -patient advised of slow position change -continue vertigo exercises taught by walk-in center provider and PT -prescription for meclizine 25 mg sent to pharmacy Elevated BP without diagnosis of hypertension Assessment & Plan (12/23/2023 6:01 PM EST): -Daily BP monitoring advised. Log provided -advised low salt diet -30 min daily of moderate intensity exercise advised -monitor for onset of headache, vision changes, chest pain, shortness of breath -follow-up 1 month Colon cancer screening 12/23/2023 Assessment & Plan (12/23/2023 6:04 PM EST): -cologuard ordered given no personal or family history of colon cancer -advised of potential need to undergo colonoscopy if cologuard result is positive Obesity (BMI 35.0-39.9 without comorbidity) 11/27 Assessment & Plan (12/23/2023 6:02 PM EST): -Healthy diet and exercise teaching completed: Eat a variety of fruit and vegetables, whole grains such as whole-wheat flour, bulgur (cracked wheat), oatmeal, and brown rice. Intake protein from beans, nuts, fish, and lean meats. Eat low-fat or fat- free dairy products. Limit highly processed foods such as hot dogs, sandwich meat, etc. Engage in minimum of 150 min of moderate intensity exercise weekly -labs ordered. Will call with results Encounters Date Type Department Care Team Description 12/20/2024 9:20 AM EST Office Visit [facility] [address] [place] [phone] Mild intermittent asthma with exacerbation (Primary Dx); HTN (hypertension), benign; Viral URI 11/23/2024 Refill [facility] [address] [place] [address] Marie Moore NP HTN (hypertension), benign 10/11/2024 4:00 PM EST Office Visit [facility] [address] [place] [phone] Lita Angel MD Mild intermittent asthma with exacerbation (Primary Dx); Influenza A 10/10/2024 Refill [facility] [address] [place] [phone] [place] FNP from Last 3 Months Immunizations Name Administration Dates Next Due Hep B, adult 07/16/2012 Influenza Injectable Quadriv alant Preservative Free IIV4 MDCK 07/10/2022,07/18/2020 Influenza injectable quadriv alent IIV4 with preservative 08/11/2018 Influenza, IIV3, injectable 08/21/2021 Tdap 04/04/2022,04/10/2016 Family History Medical History Relation Name Comments Diabetes Father Diabetes Mother Heart disease Mother Relation Name Status Comments Father Mother Social History Tobacco Use Types Packs/Day Years Used Date Smoking Tobacco: Never Passive Smoke Exposure: Never Smokeless Tobacco: Never Tobacco Cessation:Counseling Given: Not Answered Alcohol Use Standard Drinks/Week Comments Never 0 (1 standard drink = 0.6 oz pur e alcohol) Alcohol Answer Date Recorded How often do you have a drink containing alcohol ? 0 12/23/2023 How many drinks containing a lcohol do you have on a typical day when you are drinking? 0 12/23/2023 How often do you have six or more drinks on one occasion? 0 12/23/2023 Depression Answer Date Recorded Patient Health Questionnaire-9 Score 0 12/23/2023 Patient Health Questionnaire-9 Score 0 12/23/2023 Last PHQ-9: Questionnaire Data Not on file 0 12/23/2023 Housing Stability Answer Date Recorded What is your housing situation today? I have sherita anaya 12/23/[address] you li ve. Do you have problems with any of the following? None of the above 12/23/2023 Food Insecurity Answer Date Recorded Within the past 12 months, y ou worried that your food would run out before you got money to buy more: Never True 12/23/2023 Within the past 12 months,th e food you bought just didn't last and you didn't have enough money to get more: Never True Transportation Answer Date Recorded In the past 12 months, has l ack of transportation kept you from medical appts, meetings, work or from getting things needed for daily living? No 12/23/2023 Intimate Partner Violence Answer Date R ecorded Within the last year, have y ou been afraid of your partner or ex-partner? 2 12/23/2023 Within the last year, have y ou been humiliated or emotionally abused in other ways by your partner or ex-partner? 2 Within the last year, have y ou been kicked, hit, slapped, or otherwise physically hurt by your partner or ex-partner? 2 12/23/2023 Within the last year, have y ou been raped or forced to have any kind of sexual activity by your partner or ex-partner? 2 12/23/2023 Utilities Answer Date Recorded In the past 12 months, has t he [employer], gas, oil or water company threatened to shut off services in your home? No 12/23/2023 Depression Answer Date Recorded Patient Health Questionnaire-2 Score 0 12/23/2023 Comments Unknown Sex and Gender Information Value Date Recorded Sex Assigned at Female 08/25/2022 10:20 AM EDT Legal Sex Female 10:20 AM EDT Gender Identity Female 08/25/2022 10:20 AM EDT Sexual Orientation Straight 08/25/2022 10 :20 AM EDT Last Filed Vital Signs Vital Sign Reading Time Taken Comments Blood Pressure 148/94 12/20/2024 9:14 AM EST Pulse 101 12/20/2024 9:14 AM EST Temperature 36.6 ??C (97.8 ??F) 12/20/2024 9:14 AM ES T Respiratory Rate 19 12/20/2024 9:14 AM EST Oxygen Saturation 95% 12/20/2024 9:14 AM EST Inhaled Oxygen Concentration - - Weight 89.6 kg (197 lb 9.6 oz) 12/20/2024 9:14 A M EST Height 165.1 cm (5' 5 ) 09/14/2024 10:18 AM EST Body Mass Index 32.88 09/14/2024 10:18 AM EST Plan of Treatment Upcoming Encounters Date Type Department Care Team (Late st Contact Info) Description 01/13/2025 9:15 AM EDT Office Visit [facility] [address], [place] [phone] Merissa Roque NP [address] [place], [place] [phone] Health Maintenance Due Date Last Done Comments CT Colonography 1975 Colonoscopy 1975 Colorectal Cancer Screening 1975 FIT DNA/Cologuard 1975 FIT 1975 FOBT 1975 Sigmoidoscopy 1975 Family Planning (PISQ) 1990 Pneumococcal Vaccine: Pediatrics (0 to 5 Years) and At-Risk Patients (6 to 49) Years) (1 of 2 - PCV) 1994 HPV/Cotest 2005 Hepatitis B Vaccines (2 of 3 - 19+ 3-dose series) 08/13/2012 07/16/2012 COVID-19 Vaccine (4 - season) 2024 10/10/2021, 12/06/2020, 11/08/2020 Influenza Vaccine (#1) 2024 2, 08/21/2021, 07/18/2020, Additional history exists Alcohol/Substance Use Screening 12/23/2024 12/23/2023 Depression Screening 12/23/2024 12/23/2023, 12/23/19 24 SDOH Screening 12/23/2024 12/23/2023 Zoster Vaccines (1 of 2) 2025 Mammogram 11/04/2025 11/04/2024, 07/23/2023 Tobacco Screening 12/20/2025 12/20/2024 Cervical Cancer Screening 06/17/2026 Pap Smear 06/17/2026 06/17/2023, 06/17/2023 Lipid Panel 12/23/2028 12/24/2023 DTaP/Tdap/Td Vaccines (3 - Td or Tdap) 04/04/2032 04/04/2022, 04/10/2016 RSV Patients and Patients Aged 60 years or older (1 - 1-dose 75+ series) 2050 HIV Screening Completed 11/09/2024 Hepatitis C Screening Completed 11/09/2024 HIB Vaccines Aged Out No longer eligi ble based on patient's age to complete this topic HPV Vaccines Aged Out No longer eligi ble based on patient's age to complete this topic Hepatitis A Vaccines Aged Out No long er eligible based on patient's age to complete this topic IPV Vaccines Aged Out No longer eligi ble based on patient's age to complete this topic Meningococcal Vaccine Aged Out No emmanuelle delmis eligible based on patient's age to complete this topic RSV under 20 months Aged Out No longe r eligible based on patient's age to complete this topic Rotavirus Vaccines Aged Out No longer eligible based on patient's age to complete this topic Procedures Procedure Name Priority Date/Time Associated Diagnosis Comments XR CHEST 2 VIEWS Routine 12/20/2024 10:2 2 AM EST Mild intermittent asthma with exacerbation POCT INFLUENZA B (ID NOW RAPID MOLECULAR) Routine 12/20/2024 9:34 AM EST Viral URI POCT INFLUENZA A (ID NOW RAPID MOLECULAR) Routine 12/20/2024 9:34 AM EST Viral URI POCT RAPID COVID ANTIGEN Routine 12/20/2024 9:34 AM EST Viral URI MR BRAIN W AND WO CONTRAST Routine 11/11/2024 8:29 AM EST Vertigo MAGNESIUM Routine 11/09/2024 11:45 AM EST Vertigo HEPATITIS C AB W/REFL TO HCV RNA, QN, PCR Routine 11/09/2024 11:45 AM EST Encounter for health-related screening HIV 1/2 ANTIGEN/ANTIBODY, FOURTH GENERATION W/RFL Routine 11/09/2024 11:45 AM EST Encounter for health-related screening ALBUMIN, RANDOM URINE W/CREATININE Routine 11/09/2024 11:45 AM EST HTN (hypertension), benign BASIC METABOLIC PANEL Routine 11/09/2024 11:45 AM EST HTN (hypertension), benign BI MAMMOGRAM SCREENING TOMOSYNTHESIS BILATERAL Routine 11/04/2024 11:00 AM EST Encounter for screening mammogram for malignant neoplasm of breast XR CHEST 2 VIEWS Routine 10/14/2024 10:5 4 AM EST Influenza A POCT INFLUENZA B (ID NOW RAPID MOLECULAR) Routine 10/11/2024 4:22 PM EST Influenza A POCT INFLUENZA A (ID NOW RAPID MOLECULAR) Routine 10/11/2024 4:22 PM EST Influenza A POCT RAPID COVID ANTIGEN Routine 10/11/2024 4:22 PM EST Influenza A LIPID PANEL, STANDARD Routine 12/24/2023 8:30 AM EST Obesity (BMI 35.0-39.9 without comorbidity) PAP SMEAR Routine 06/17/2023 10:25 AM EDT from Last 3 Months or Most Recently Relevant to Health Maintenance Results * XR Chest 2 Views (12/20/2024 10:22 AM EST) Only the most recent of2 resultswithin the time period is included. Anatomical Region Laterality Modality Chest Radiographic Sejal ging 12/20/2024 10:2 2 AM EST Narrative 12/20/2024 11:11 AM EST ?[facility] ?[address] ?[place] [address] ?XRay Report ? Signed ? Patient: Diego,Annmarie M ?MR#: [id number] ?? [id number] ? : 1975 ?Acct:[id number] ? Age/Sex: 49 / F ?ADM Date: 12/20/24 ? Loc: HO.HHCX ? Attending Dr: Pedro Lara MD ? Ordering Physician: PEDRO LARA MD ?? Date of Service: 12/20/24 ?? Procedure(s): XR chest 2V ?? Accession Number(s): [id number] ? cc: PEDRO LARA MD ? EXAMINATION: ??XR CHEST 2 VIEWS ? HISTORY: 3 month h/o cough, abnormal CXR 10/14/2024 ? COMPARISON: Comparison is made with the prior examination dated ?? 10/14/2024. ? FINDINGS: ??PA and lateral views of the chest are submitted. There is ?? linear scarring at the left lung base. The lungs are otherwise clear. ?? The previously seen left lower lobe pneumonia has resolved. ??There is ?? no pleural effusion, pneumothorax, or pulmonary vascular congestion. ? The heart is normal in size. ??There is degenerative disc disease of the ?? spine. ? XR/XR chest 2V ?? IMPRESSION: ?? No acute cardiopulmonary abnormality. The previously seen left lower ?? lobe pneumonia has resolved. ? Electronically signed by: ??Ruben Gary MD ??12/20/2024 11:08 AM EST ?? RP ? Dictated By: ?Ruben Gary MD ? Signed By: ?<Electronically signed by Ruben Gary MD in OV> ?12/20/24 1108 ? DD/ 1022 ? TD/TT: 12/20/24 1028 ? [employer]: ? Procedure Note Jules Farmer - 12/20/[address] [address] XRay Report Signed Patient: Annmarie Cortez MMR#: [id number] : 1975Acct:[id number] Age/Sex: 49 / FADM Date: 12/20/24 Loc: HO.HHCX Attending Dr: Pedro Lara MD Ordering Physician: PEDRO LARA MD Date of Service: 12/20/24 Procedure(s): XR chest 2V Accession Number(s): [id number] cc: PEDRO LARA MD EXAMINATION: XR CHEST 2 VIEWS HISTORY: 3 month h/o cough, abnormal CXR 10/14/2024 COMPARISON: Comparison is made with the prior examination dated 10/14/2024. FINDINGS: PA and lateral views of the chest are submitted. There is linear scarring at the left lung base. The lungs are otherwise clear. The previously seen left lower lobe pneumonia has resolved. There is no pleural effusion, pneumothorax, or pulmonary vascular congestion. The heart is normal in size. There is degenerative disc disease of the spine. XR/XR chest 2V IMPRESSION: No acute cardiopulmonary abnormality. The previously seen left lower lobe pneumonia has resolved. Electronically signed by: Ruben Gary MD 12/20/2024 11:08 AM EST Dictated By: Ruben Gary MD Signed By: <Electronically signed by Ruben Gary MD in OV> 12/20/24 1108 DD/ 1022 TD/TT: 12/20/24 1028 [employer]: Pedro Lara MD IMG XR PROCEDURES Final Result * Influenza B (ID NOW Rapid Molecular) (12/20/2024 9:34 AM EST) Only the most recent of2 resultswithin the time period is included. Influenza B Negative Negative, Indeterminate [facility] Swab 12/20/2024 9:34 AM EST Pedro Lara MD POINT OF CARE TEST ENTER/EDIT OR DERABLES Final Result [facility] [address] [place] [phone] * Influenza A (ID NOW Rapid Molecular) (12/20/2024 9:34 AM EST) Only the most recent of2 resultswithin the time period is included. Influenza A Negative Negative, Indeterminate [facility] Swab 12/20/2024 9:34 AM EST us Pedro Lara MD POINT OF CARE TEST ENTER/EDIT OR DERABLES Final Result Performing Organization Address [facility] de Phone Number [facility] [address] [place] [phone] * POCT Rapid COVID Ag (12/20/2024 9:34 AM EST) Only the most recent of2 resultswithin the time period is included. [facility] Rapid COVID Ag Negative [facility] Swab 12/20/2024 9:34 AM EST Pedro Lara MD POINT OF CARE TEST ENTER/EDIT OR DERABLES Final Result Performing Organization Address [facility] de Phone Number [facility] [address] [place] [phone] * Mr Brain w/ and w/o Contrast (11/11/2024 8:29 AM EST) Anatomical Region Laterality Modality Brain Magnetic Resonan ce 11/11/2024 8:29 AM EST Narrative 11/11/2024 8:30 AM EST ? [facility] ?[address] ?[place] [address] ? Magnetic Resonance Report ? Signed ? Patient: Diego,Annmarie M ?MR#: [id number] ?? [id number] ? : 1975 ?Acct:[id number] ? Age/Sex: 49 / F ?ADM Date: 01/16/25 ? Loc: HO.MRI ? Attending : Merissa Roque ? Ordering Physician: Apprasatish,Merissa ?? Date of Service: 11/10/24 ?? Procedure(s): MR head/brain wo/w con ?? Accession Number(s): [id number] ? cc: Merissa Roque; Jared Cano MD ? CLINICAL HISTORY: r o menieres ? MR Brain with and without gadolinium. Thin slice high-resolution imaging ?? through the IAC's. ? Comparison: None ? Findings: ?? No restricted diffusion. No intracranial mass or hemorrhage. ?? No midline shift. No hydrocephalus. ?? Vascular flow voids are intact. ?? No cerebellopontine angle mass or abnormal enhancement along the ?? visualized cranial nerves. ?? Note is made of a type 2 vascular loop on the right. ?? Orbital contents are unremarkable. ?? Moderate mucoperiosteal thickening of the paranasal sinuses with small ?? volume fluid within the maxillary sinuses. ?? No focal bone lesion. ? IMPRESSION: ?? No cerebellopontine angle mass or abnormal enhancement. ?? There is a type 2 vascular loop on the right. ?? There is moderate paranasal sinus disease. ? This document has been electronically signed by: Kory Schumacher MD on ?? 11/11/2024 08:29:14 ? Dictated By: ?Kory Schumacher MD ? Signed By: ?<Electronically signed by Kory Schumacher MD in OV> ? 11/11/24 0830 ? DD/ 8 ? TD/TT: 11/11/24828 ? [employer]: ? Procedure Note Marleny, Image - 11/11/2024 [place] [address] Magnetic Resonance Report Signed Patient: Annmarie Cortez [facility]#: [id number] : 1975Acct:[id number] Age/Sex: 49 / FADM Date: 11/10/24 Loc: HO.MRI Attending Dr: Merissa Roque Ordering Physician: Merissa Roque Date of Service: 11/10/24 Procedure(s): MR head/brain wo/w con Accession Number(s): [id number] cc: Merissa Roque; Jared Cano MD CLINICAL HISTORY: r miladis sainz MR Brain with and without gadolinium. Thin slice high-resolution imaging through the IAC's. Comparison: None Findings: No restricted diffusion. No intracranial mass or hemorrhage. No midline shift. No hydrocephalus. Vascular flow voids are intact. No cerebellopontine angle mass or abnormal enhancement along the visualized cranial nerves. Note is made of a type 2 vascular loop on the right. Orbital contents are unremarkable. Moderate mucoperiosteal thickening of the paranasal sinuses with small volume fluid within the maxillary sinuses. No focal bone lesion. IMPRESSION: No cerebellopontine angle mass or abnormal enhancement. There is a type 2 vascular loop on the right. There is moderate paranasal sinus disease. This document has been electronically signed by: Kory Schumacher MD on 11/11/2024 08:29:14 Dictated By: Kory Schumacher MD Signed By: <Electronically signed by Kory Schumacher MD in OV> 11/11/24829 DD/ 8 TD/TT: 11/11/24828 [employer]: us Merissa Roque NP IMG MRI PROCEDURES Edited Resul t - Final * Albumin, Random Urine W/Creatinine (11/09/2024 11:45 AM EST) Creatinine, Urine 22.47 mg/dL [facility] Microalbumin Urine <5.0 mg/L [facility] Microalbum Creatinine Ratio Ur TNP <30 ug/mg cr [facility] Comment:Unable to calculate albumin/creatinine ratio due to lowmicroalbumin or creatinine result. Urine (Urine, Random) 11/09/2024 11:45 AM EST 11/09/2024 1:00 PM EST us Merissa Roque NP LAB URINE ORDERABLES Final Resu lt [facility] [address] [place] [phone] * Hepatitis C Antibody with Reflex to HCV, RNA, Quantitative, Real-Time PCR (11/09/2024 11:45 AM EST) Hepatitis C Antibody Nonreactive Nonreactive [facility] Comment:Antibodies to HCV no t detected; does not exclude early acuteHCV infection. Blood Venous blood specimen / Unknown 11/09/2024 11:45 AM EST 11/09/2024 1:05 PM EST Merissa Brumfield COIL SPRING ASSEMBLER LAB BLOOD ORDERABLES Final Resu lt Performing Organization Address [facility] Co de Phone Number [facility] [address] [place] [phone] * HIV-1/2 Antigen and Antibodies, Fourth Generation, with Reflexes (11/09/2024 11:45 AM EST) HIV AB/AG Nonreactive Nonreactive [facility] Comment:HIV-1 p24 Ag and/or HIV-1/HIV-2 Ab not detected.A test result that is nonreactive does not exclude thepossibility of exposure to or infection with HIV-1 and/orHIV-2. Nonreactive results in this assay for individualswith prior exposure to HIV-1 and/or HIV-2 may be due toantigen and antibody levels that are below the limit ofdetection of this assay.The Kanga HIV Ag/Ab Combo assay result andsupplemental assay results should be interpreted inconjunction with the patient's clinical presentation,history and other laboratory results. If the results areinconsistent with clinical evidence, additional testing issuggested to confirm the result. Blood Venous blood specimen / Unknown 11/09/2024 11:45 AM EST 11/09/2024 1:05 PM EST Merissa Brumfield COIL SPRING ASSEMBLER LAB BLOOD ORDERABLES Final Resu lt Performing Organization Address [facility] Co de Phone Number [facility] [address] [place] [phone] * Magnesium (11/09/2024 11:45 AM EST) Magnesium 2.3 1.6 - 2.6 mg/dL [facility] Blood Venous blood specimen / Unknown 11/09/2024 11:45 AM EST 11/09/2024 1:05 PM EST Merissa Brumfield COIL SPRING ASSEMBLER LAB BLOOD ORDERABLES Final Resu lt Performing Organization Address City/[facility]/ZIP Co de Phone Number [facility] [address] [place] [address] [phone] * (ABNORMAL) Basic Metabolic Panel (11/09/2024 11:45 AM EST) Sodium 141 135 - 145 mmol/L [facility] Potassium 3.5 3.3 - 5.1 mmol/L [facility] Chloride 105 96 - 108 mmol/L [facility] Carbon Dioxide 29 22 - 29 mmol/L [facility] Anion Gap 11(L) 12 - 20 [facility] Urea Nitrogen (BUN) 8(L) 9 - 16 mg/dL [facility] Creatinine, Serum 0.75 0.5 - 1.4 mg/dL [facility] Estimated Glomerular Filt Rate >60 [facility] Comment:Chronic Kidney Disea se: Estimated GFR < 60 mL/min/1.32p0Qkxtav Kidney Disease: Estimated GFR < 15 mL/min/1.73m2 Glucose 81 60 - 115 mg/dL [facility] Calcium 9.3 8.4 - 10.2 mg/dL [facility] Blood Venous blood specimen / Unknown 11/09/2024 11:45 AM EST 11/09/2024 1:05 PM EST Merissa Roque NP LAB BLOOD ORDERABLES Final Resu lt Performing Organization Address City/State/[facility] Co de Phone Number [facility] [address] [place] [address] [phone] * BI Mammogram Screening Tomosynthesis Bilateral (11/04/2024 11:00 AM EST) Anatomical Region Laterality Modality Breast Bilateral Mammography 11/04/2024 11:0 0 AM EST Narrative 11/11/2024 4:03 PM EST ? [facility] ? [address] ?[place] [address] ? Mammography Report ? Signed ? Patient: Diego,Annmarie M ?MR#: [id number] ?? [id number] ? : 1975 ?Acct:[id number] ? Age/Sex: 49 / F ?ADM Date: 01/10/25 ? Loc: HO.MAMMO ? Attending Dr: Merissa Roque ? Ordering Physician: Merissa Roque ?Results: 1Negative ? Date of Service: 11/04/24 ?Follow Up: 1 Year From Orig ?? inal Mammogram ? Procedure(s): MM tomosynthesis screening BI ?? Accession Number(s): [id number] ? cc: Merissa Roque; Jared Cano MD ? EXAMINATION: ?? MM SCREENING DIGITAL BREAST TOMOSYNTHESIS, BILATERAL ? CLINICAL INFORMATION: ? Screening. Asymptomatic. ? COMPARISON: ?? Mammography: Comparison is made with available priors ? TECHNIQUE: ?? Digital breast mammography with tomosynthesis is performed in both the ?? craniocaudal and mediolateral oblique views along with computer-aided ?? detection (CAD). ? FINDINGS: ?? The breasts are heterogeneously dense, which may obscure small masses ?? (ACR BI-RADS breast composition Category c). ? There are no significant masses, abnormal calcifications, or other ?? abnormalities. ? MM/MM tomosynthesis screening BI ?? IMPRESSION: ?? No mammographic evidence of malignancy. ? ASSESSMENT: ? BI-RADS BI-RADS 1 - Negative ? RECOMMENDATION: ?? Routine annual mammography screening. ? 1 year F/U ? This examination should not preclude the clinical evaluation of a ?? suspicious palpable abnormality. ? This patient's information was entered into a reminder system with a ?? target due date for their next mammogram. ? Electronically signed by: ??Lyubov Douglas DO ??11/11/2024 04:01 PM EST ?? RP ? Dictated By: ?Lyubov Douglas DO ? Signed By: ?<Electronically signed by Lyubov Douglas, DO in OV> ? 11/11/24 1601 ? DD/ 1100 ? TD/TT: 11/04/24 1125 ? [employer] Industrial [employer] Teacher: ? Procedure Note Donotjordaninterpreter, Image - [facility] [address] [place], [place] [address] Mammography Report Signed Patient: Annmarie Cortez MMR#: [id number] : 1975Acct:[id number] Age/Sex: 49 / FADM Date: 11/04/24 Loc: HO.MAMMO Attending Dr: Merissa Roque Ordering Physician: Merissa RoqueResults: 1Negative Date of Service: 11/04/24Follow Up: 1 Year From Orig inal Mammogram Procedure(s): MM tomosynthesis screening BI Accession Number(s): [id number] cc: Merissa Roque; Jared Cano MD EXAMINATION: MM SCREENING DIGITAL BREAST TOMOSYNTHESIS, BILATERAL CLINICAL INFORMATION: Screening. Asymptomatic. COMPARISON: Mammography: Comparison is made with available priors TECHNIQUE: Digital breast mammography with tomosynthesis is performed in both the craniocaudal and mediolateral oblique views along with computer-aided detection (CAD). FINDINGS: The breasts are heterogeneously dense, which may obscure small masses (ACR BI-RADS breast composition Category c). There are no significant masses, abnormal calcifications, or other abnormalities. MM/MM tomosynthesis screening BI IMPRESSION: No mammographic evidence of malignancy. ASSESSMENT: BI-RADS BI-RADS 1 - Negative RECOMMENDATION: Routine annual mammography screening. 1 year F/U This examination should not preclude the clinical evaluation of a suspicious palpable abnormality. This patient's information was entered into a reminder system with a target due date for their next mammogram. Electronically signed by: Lyubov Douglas DO 11/11/2024 04:01 PM EST Dictated By: Lyubov Douglas DO Signed By: <Electronically signed by Lyubov Douglas DO in OV> 11/11/24 1601 DD/ 1100 TD/TT: 11/04/24 1125 [employer] Teacher: us Merissa Roque NP IMG BI PROCEDURES Edited Result - Final * (ABNORMAL) Lipid Panel, Standard (12/24/2023 8:30 AM EST) Triglycerides 54 <150 mg/dL [facility] Comment:Desirable Triglyceri de: less than 150 mg/dLBorderline High Triglyceride 150-199 mg/dLHigh Triglyceride: 200-499 mg/dLVery High Triglyceride: greater than or equal to 5OO mg/dL Cholesterol 190 <200 mg/dL [facility] Comment:Desirable Cholestero l: less than 200 mg/dLBorderline High Cholesterol: 200-239 mg/dLHigh Cholesterol: greater than 239 mg/dL LDL Cholesterol Calculated 110(H) <100 mg/dL [facility] Comment:Desirable LDL: less than 100 mg/dLNear Optimal/Above Optimal LDL: 110- 129 mg/dLBorderline High LDL: 130-159 mg/dLHigh LDL: 160-189 mg/dLVery High LDL: greater than or equal to 190 mg/dL HDL Cholesterol 70 >40 mg/dL [facility] Comment:Desirable HDL: great er than 40 mg/dL Note: This HDL assay may give artificially low results in patients with liver disease. Blood Venous blood specimen / Unknown 12/24/2023 8:30 AM EST 12/24/2023 11:27 AM EST us Merissa Roque NP LAB BLOOD ORDERABLES Final Resu lt [facility] [address] [place] [address] [phone] * Pap Smear (06/17/2023 10:25 AM EDT) 06/17/2023 10:2 5 AM EDT 06/19/2023 8:50 AM EDT [facility] - 07/04/2023 2:10 PM EDT ----- ------- Name: Annmarie Cortez ? Age/Sex: 48/F ? : 1975 Unit#: [id number] ?? Attend Dr: Celia Contreras CNM ?Re06/17/23 ?Status: DEP REF ? Location: HO.LNP ?Disch: ? ----- ------- SPEC : [id number] ?RECD: 06/19/23-849 ? STATUS: ??SOUT ? REQ NUM: [id number] ? VALERIE: 06/17/23-6026 ? SUBM DR: Celia Contreras CNM ? ENTERED: ??06/19/23-924 ?SP TYPE: Pap Smr ?OTHR DR: Lita Anegl MD ? ORDERED: ??Pap Smear ? Interpretation ?? Satisfactory for evaluation. ?? Negative for intraepithelial lesion or malignancy. ? HPV mRNA E6/E7: ?NOT DETECTED ? This assay detects E6/E7 viral messenger RNA (mRNA) from 14 high-risk HPV types (16, 18, ?? 31, 33, 35, 39, 45, 51, 52, 56, 58, 59, 66, 68) ? HPV testing performed by [facility], [place], [place]. ??See reference laboratory ?? portion of the EMR for entire report. ?Clinical Information LMP:05/15/23 Previous PAP test:2018, WNL ? Material Received ?? ThinPrep-Cervical Copies To: ?? Lita Angel MD ?? [address] [facility] ?? [place] [address] ? Celia Contreras CNM ?? [address] [facility] [address] ?? [place] [address] ?? [phone] ----- ------- Signed (signature on file) Kristina Knight 07/04/23 1410 ? ----- ------- ? END OF REPORT ? [facility] External Provider LAB [facility] ORDERABLES Final Result Performing Organization Address City/State/[facility] Co de Phone Number [facility] [address] [place] [phone] from Last 3 Months or Most Recently Relevant to Health Maintenance Insurance , [address] [place] [address] Care Teams Rail Bonder Relationship Specialty Start Date End Date Merissa Roque NP [address] [place] [phone] PCP - General Family Medicine 12/22/23
--- OUTSIDE RECORDS SUMMARY | 2024-12-20 12:13 | XMS_ITS | Encounter Summary ---
Author Organization [employer] Address [address] [place] [address] Care Team Providers Care Coroner Technician Name Role Phone Merissa Roque NP Primary Care Provider [phone] Reason for Referral * Consultation (Routine) - Pending Review Specialty Diagnoses / Procedures Referred By Ari grewal Referred To Contact Pulmonary Disease Diagnoses Mild intermittent asthma with exacerbation Pedro Salguero MD [address] [place] [phone] Phone: tel: fax: Referral ID Status Reason Start Date Expiration Date Visits Requested Visits Authorized [id number] Pending Review Specialty Services Required 12/20/2024 12/20/2025 1 1 Reason for Visit * Reason Comments Cough Shortness of Breath Encounter Details Date Type Department Care Team (Late st Contact Info) Description 12/20/2024 9:20 AM EST Office Visit [facility] [address] [place] [phone] Mild intermittent asthma with exacerbation (Primary Dx); HTN (hypertension), benign; Viral URI Social History Tobacco Use Types Packs/Day Years Used Date Smoking Tobacco: Never Passive Smoke Exposure: Never Smokeless Tobacco: Never Alcohol Use Standard Drinks/Week Comments Never 0 [...] the past 12 months, has t he electric, gas, oil or water company threatened to [...] AM EDT documented as of this encounter Last Filed Vital Signs Vital Sign Reading [...] oz) 12/20/2024 9:14 A M EST Height - - Body Mass Index 32.88 09/14/2024 10:18 AM EST documented in this encounter Plan of Treatment Upcoming Encounters Date Type Department Care Team (Late st Contact Info) Description 01/13/2025 9:15 AM EDT Office Visit [facility] [address] [place], [place] [phone] Merissa Roque NP [address] [place] [address] Scheduled Referrals Name Type Priority Associated Diagnoses Orde r Schedule Referral to Pulmonology Outpatient Referral Routine Mild intermittent asthma with exacerbation Expected: 12/20/2024 (Approximate), Expires: 12/20/2025 documented as of this encounter Procedures Procedure Name Priority Date/Time Associated Diagnosis Comments XR CHEST 2 VIEWS Routine 12/20/2024 10:2 2 AM EST Mild intermittent asthma with exacerbation POCT INFLUENZA B (ID NOW RAPID MOLECULAR) Routine 12/20/2024 9:34 AM EST Viral URI POCT INFLUENZA A (ID NOW RAPID MOLECULAR) Routine 12/20/2024 9:34 AM EST Viral URI POCT RAPID COVID ANTIGEN Routine 12/20/2024 9:34 AM EST Viral URI documented in this encounter Results * XR Chest 2 Views (12/20/2024 10:22 AM EST) Anatomical Region Laterality Modality Chest Radiographic Sejal ging 12/20/2024 10:2 2 AM EST Narrative 12/20/2024 11:11 AM EST ?[facility] ?[address] ?[place] [address] ?XRay Report ? Signed ? Patient: Diego,Annmarie M ?MR#: [id number] ?? [id number] ? : 1975 ?Acct:[id number] ? Age/Sex: 49 / F ?ADM Date: 12/20/24 ? Loc: HO.HHCX ? Attending Dr: Pedro Salguero MD ? Ordering Physician: PEDRO SALGUERO MD ?? Date of Service: 12/20/24 ?? Procedure(s): XR chest 2V ?? Accession Number(s): [id number] ? cc: PEDRO SALGUERO MD ? EXAMINATION: ??XR CHEST 2 VIEWS [...] ??Ruben Gary MD ??12/20/2024 11:08 AM EST ? Dictated By: ?Ruben Gary MD ? Signed By: ?<Electronically signed by Ruben Gary MD in OV> ?12/20/24 1108 ? DD/ 1022 ? TD/TT: 12/20/24 1028 ? Director Of Creative Services: ? Procedure Note Jules Farmer - 12/20/[address] [address] XRay Report Signed Patient: DiegoAnnmarie MMR#: [id number] : 1975Acct:[id number] Age/Sex: 49 / FADM Date: 12/20/24 Loc: HO.HHCX Attending Dr: Pedro Salguero MD Ordering Physician: PEDRO SALGUERO MD Date of Service: 12/20/24 Procedure(s): XR chest 2V Accession Number(s): [id number] cc: PEDRO SALGUERO MD EXAMINATION: XR CHEST 2 VIEWS HISTORY: [...] Ruben Gary MD 12/20/2024 11:08 AM EST RP Dictated By: Ruben Gary MD Signed By: <Electronically signed by Ruben Gary MD in OV> 12/20/24 1108 DD/ 1022 TD/TT: 12/20/24 1028 Director Of Creative Services: Pedro Salguero MD IMG XR PROCEDURES Final Result * Influenza B (ID NOW Rapid Molecular) (12/20/2024 9:34 AM EST) Pathologist [facility] Influenza B Negative Negative, Indeterminate [facility] Swab 12/20/2024 9:34 AM EST Pedro Salguero MD POINT OF CARE TEST ENTER/EDIT OR DERABLES Final Result [facility] [address] [place] [phone] * Influenza A (ID NOW Rapid Molecular) (12/20/2024 9:34 AM EST) [facility] Influenza A Negative Negative, Indeterminate [facility] Swab 12/20/2024 9:34 AM EST us Pedro Salguero MD POINT OF CARE TEST ENTER/EDIT OR DERABLES Final Result Performing Organization Address [facility] Co de Phone Number [facility] [address] [place] [address] [phone] * POCT Rapid COVID Ag (12/20/2024 9:34 AM EST) Rapid COVID Ag Negative [facility] Swab 12/20/2024 9:34 AM EST us Pedro Salguero MD POINT OF CARE TEST ENTER/EDIT OR DERABLES Final Result Performing Organization Address [facility] Phone Number [facility] [address] [place] [address] [phone] documented in this encounter Visit Diagnoses Diagnosis Mild intermittent asthma with exacerbation- Primary Unspecified asthma, with exacerbation HTN (hypertension), benign Essential hypertension, benign Viral URI Acute upper respiratory infections of unspecified site documented in this encounter Administered Medications Inactive Administered Medications - up to 3 most recent administrations Medication Order MAR Action Action Date Dose Rate Site albuterol (2.5 MG/3ML) 0.083% nebulizer solution 2.5 mg 2.5 mg, Nebulization, Once, On Thu12/20/24 at 1015, For 1 doseIndications:Mild intermittent asthma with exacerbation Given 12/20/2024 10:15 AM EST 2.5 mg predniSONE (Deltasone) tablet 40 mg 40 mg, Oral, Once, On Thu12/20/24 at 1015, For 1 doseIndications:Mild intermittent asthma with exacerbation Given 12/20/2024 10:15 AM EST 40 mg documented in this encounter Additional Health Concerns Assessment Noted Time PHQ-9 Depression Total Score: 0 12/23/19 24 2:19 PM EST documented as of this encounter Care Teams Coroner Technician Relationship Specialty Start Date End Date Merissa Roque NP [address] [place] [phone] PCP - General Family Medicine 12/22/23 documented as of this encounter
--- OUTSIDE RECORDS SUMMARY | 2024-12-20 12:13 | XMS_ITS | Encounter Summary ---
Author Organization [employer] Address [address] [facility] [address] [place] [address] Care Team Providers Care Media Executive Name Role Phone Nuvia Irwin MOUNTAIN SERVICES MANAGER Primary Care Provider [phone] Merissa Roque NP Primary Care Provider [phone] Reason for Visit * Reason Comments Med Refill Encounter Details Date Type Department Care Team (Late st Contact Info) Description 09/24/2023 Refill [facility] [address] [place] [phone] Lita Angel MD [address] [place], [place] [phone] Social History Tobacco Use Types Packs/Day Years Used Date Smoking Tobacco: Never Passive Smoke Exposure: Never Smokeless Tobacco: Never Comments Unknown Sex and Gender Information Value Date Recorded Sex Assigned at Female 08/25/2022 10:20 AM EDT Legal Sex Female 10:20 AM EDT Gender Identity Female 08/25/2022 10:20 AM EDT Sexual Orientation Straight 08/25/2022 10 :20 AM EDT documented as of this encounter Plan of Treatment Upcoming Encounters Date Type Department Care Team (Late st Contact Info) Description 01/13/2025 9:15 AM EDT Office Visit [facility] [address] [place] [phone] Merissa Roque NP [address] [place] [address] documented as of this encounter Visit Diagnoses Not on filedocumented in this encounter Care Teams Media Executive Relationship Specialty Start Date End Date Nuvia Irwin FNP [address] [place] [address] PCP - General Family Medicine 12/30/22 11/25/23 Merissa Roque NP [address] [place] [address] PCP - General Family Medicine 12/22/23 documented as of this encounter
--- OUTSIDE RECORDS SUMMARY | 2024-12-20 12:13 | XMS_ITS | Encounter Summary ---
Author Organization [employer] Address [address] [place] [address] Care Team Providers Care Ocean Freight Forwarder Name Role Phone Merissa Roque NP Primary Care Provider [phone] Reason for Visit * Reason Comments Med Refill Encounter Details Date Type Department Care Team ([facility] st Contact Info) Description 11/23/2024 Refill [facility] [address] [place] [address] Marie Moore NP [address] [place] [address] HTN (hypertension), benign Social History Tobacco Use Types Packs/Day Years [...] Description 01/13/2025 9:15 AM EDT Office Visit [facility] [address] [place] [address] Merissa Roque NP [address] [place] [address] documented as of this encounter Visit Diagnoses Diagnosis HTN (hypertension), benign Essential hypertension, benign documented in this encounter Additional Health Concerns Assessment Noted Time PHQ-9 Depression Total Score: 0 12/23/19 24 2:19 PM EST documented as of this encounter Care Teams Ocean Freight Forwarder Relationship Specialty Start Date End Date Merissa Roque NP [address] [place] [address] PCP - General Family Medicine 12/22/23 documented as of this encounter
== END 2024-12-20 10:23 | disposition home or self-care (01) ==
LOC: HO.HHCX 10:22
PROVIDERS: Visit Provider Emergency Medicine
DX: J45.21 Mild intermittent asthma with (acute) exacerbation (principal)
CPT/HCPCS: 71046

== ENCOUNTER → 2024-12-20 10:22 | Outpatient (BNV) | payer OTHER, SELFPAY | PROVIDERS: Visit Provider Radiology Diagnostic Radiology | DX: R05.9 Cough, unspecified (principal) | CPT/HCPCS: 71046 ==

== ENCOUNTER 2025-07-31 09:20 | Outpatient (REF) | payer OTHER, SELFPAY ==
--- NOTE | ~2025-07-31 | XR_ITS ---
EXAMINATION: XR CHEST CLINICAL INFORMATION: productive cough COMPARISON: 12/20/2024. TECHNIQUE: 2 views of the chest were obtained. FINDINGS: The cardiac, hilar, and mediastinal contours are normal. The lungs are clear bilaterally. There is no pneumothorax or pleural effusion. There is no focal osseous or soft tissue abnormality. XR/XR chest 2V IMPRESSION: No active pulmonary disease. Electronically signed by: Esvin Ames MD 07/31/2025 09:31 AM EDT
--- OUTSIDE RECORDS SUMMARY | 2025-07-31 09:00 | XMS_ITS | Encounter Summary ---
Author Organization [employer] Address [address] [facility] [address] [place] [address] Care Team Providers Care Pattern Clerk Name Role Phone Merissa Roque NP Primary Care Provider [phone] Reason for Visit * Reason Comments Asthma Encounter Details Date Type Department Care Team ([facility] st Contact Info) Description 07/31/2025 9:00 AM EDT Office Visit [facility] [address] [address] Mild intermittent asthma with exacerbation (Primary Dx); HTN (hypertension), benign Social History Tobacco Use Types Packs/Day Years Used Date Smoking Tobacco: Former Cigarettes Passive Smoke Exposure: Never Smokeless Tobacco: Never [...] Sign Reading Time Taken Comments Blood Pressure 146/91 07/31/2025 9:09 AM EDT Pulse 93 07/31/2025 9:01 AM EDT Temperature 36.6 C (97.9 F) 07/31/2025 9:01 AM EDT Respiratory Rate 22 07/31/2025 9:01 AM EDT Oxygen Saturation 95% 07/31/2025 9:09 AM EDT Inhaled Oxygen Concentration - - Weight 87.5 kg (192 lb 12.8 oz) 07/31/2025 9:01 AM EDT Height - - Body Mass Index 32.08 09/14/2024 10:18 AM EST documented in this encounter Plan of Treatment Not on file documented as of this encounter Procedures Procedure Name Priority Date/Time Associated Diagnosis Comments XR CHEST 2 VIEWS Routine 07/31/2025 9:28 AM EDT Mild intermittent asthma with exacerbation documented in this encounter Results * XR Chest 2 Views (07/31/2025 9:28 AM EDT) Anatomical Region Laterality Modality Chest Radiographic Sejal ging 07/31/2025 9:28 AM EDT Narrative 07/31/2025 9:34 AM EDT [address] [address] XRay Report Signed Patient: Annmarie Cortez MR#: [id number] : 1975 Acct:[id number] Age/Sex: 50 / F ADM Date: 07/31/25 Loc: HO.HHCX Attending Dr: Pedro Salguero MD Ordering Physician: PEDRO SALGUERO MD Date of Service: 07/31/25 Procedure(s): XR chest 2V Accession Number(s): [id number] cc: PEDRO SALGUERO MD Reason for Exam: productive cough EXAMINATION: XR CHEST CLINICAL INFORMATION: productive cough COMPARISON: 12/20/2024. TECHNIQUE: 2 views of the chest were obtained. FINDINGS: The cardiac, hilar, and mediastinal contours are normal. The lungs are clear bilaterally. There is no pneumothorax or pleural effusion. There is no focal osseous or soft tissue abnormality. XR/XR chest 2V IMPRESSION: No active pulmonary disease. Electronically signed by: Esvin Ames MD 07/31/2025 09:31 AM EDT RP Dictated By: Esvin Ames MD Signed By: <Electronically signed by Esvin Ames MD in OV> 07/31/25930 DD/ 7 TD/TT: 07/31/25927 Voice Teacher: Procedure Note Donotuseinterpreter, Image - 07/31/[address] [place] [address] XRay Report Signed Patient: Annmarie Cortez MMR#: [id number] : 1975Acct:[id number] Age/Sex: 50 / FADM Date: 07/31/25 Loc: HO.HHCX Attending Dr: Pedro Salguero MD Ordering Physician: PEDRO SALGUERO MD Date of Service: 07/31/25 Procedure(s): XR chest 2V Accession Number(s): [id number] cc: PEDRO SALGUERO MD Reason for Exam: productive cough EXAMINATION: XR CHEST CLINICAL INFORMATION: productive cough COMPARISON: 12/20/2024. TECHNIQUE: 2 views of the chest were obtained. FINDINGS: The cardiac, hilar, and mediastinal contours are normal. The lungs are clear bilaterally. There is no pneumothorax or pleural effusion. There is no focal osseous or soft tissue abnormality. XR/XR chest 2V IMPRESSION: No active pulmonary disease. Electronically signed by: Esvin Ames MD 07/31/2025 09:31 AM EDT Dictated By: Esvin Ames MD Signed By: <Electronically signed by Esvin Ames MD in OV> 07/31/25930 DD/ 7 TD/TT: 07/31/25927 Voice Teacher: Pedro Salguero MD IMG XR PROCEDURES Final Result documented in this encounter Visit Diagnoses Diagnosis Mild intermittent asthma with exacerbation- Primary Unspecified asthma, with exacerbation HTN (hypertension), benign Essential hypertension, benign documented in this encounter Administered Medications Inactive Administered Medications - up to 3 most recent administrations Medication Order MAR Action Action Date Dose Rate Site predniSONE (Deltasone) tablet 40 mg 40 mg, Oral, Once, On 07/31/25 at 0930, For 1 doseIndications:Mild intermittent asthma with exacerbation Given 07/31/2025 9:30 AM EDT 40 mg documented in this encounter Additional Health Concerns Assessment Noted Time PHQ-9 Depression Total Score: 0 12/23/19 24 2:19 PM EST documented as of this encounter Care Teams Pattern Clerk Relationship Specialty Start Date End Date Merissa Roque NP [address] [place] [address] PCP - General Family Medicine 12/22/23 documented as of this encounter
--- OUTSIDE RECORDS SUMMARY | 2025-07-31 10:33 | XMS_ITS | Encounter Summary ---
Author Organization [employer] Address [address] [facility] 7t [place] [address] Care Team Providers Care Cpc Coder Name Role Phone Merissa Roque NP Primary Care Provider [phone] Reason for Visit * Reason Comments Med Refill Encounter Details Date Type Department Care Team ([facility] st Contact Info) Description 05/07/2025 Refill [facility] [address] [place] [address] Pedro Lara MD [address] [place] [address] Social History Tobacco Use Types Packs/Day Years [...] as of this encounter Plan of Treatment Not on file documented as of this encounter Visit Diagnoses Not on filedocumented in this encounter Additional Health Concerns Assessment Noted Time PHQ-9 Depression Total Score: 0 12/23/19 2:19 PM EST documented as of this encounter Care Teams Cpc Coder Relationship Specialty Start Date End Date Merissa Roque NP [address] [place] [address] PCP - General Family Medicine 12/22/23 documented as of this encounter
--- OUTSIDE RECORDS SUMMARY | 2025-07-31 10:33 | XMS_ITS | Clinical Summary ---
Author Organization [employer] Address [address] [facility] 7t [place] [address] Care Team Providers Care Denier Control Operator Name Role Phone Merissa Roque NP Primary Care Provider [phone] Allergies Active Allergy Reactions Criticality Noted Date [...] for 1 week 15 g 024 Active ondansetron ODT (Zofran-ODT) 4 MG disintegrating tablet Take 1 tablet (4 mg) by mouth every 8 (eight) hours if needed for nausea or vomiting. 20 tablet 2 024 Active Blood Pressure kit 1 each 2 times daily. 1 kit 12/20/ 025 2025 Active albuterol (2.5 MG/3ML) 0.083% nebulizer solution Take 3 mL (2.5 mg) by nebulization every 6 (six) hours if needed for wheezing or shortness of breath. 75 mL 3 025 2025 Active azithromycin (Zithromax Z-Wes) 250 MG tablet Take 2 tablets once on day 1, then 1 tablet 1x/day for 4 days. 6 tablet Active Spacer/Aero-Holdi ng Chambers (OptiChamber Erika) misc 1 each every 4 (four) hours if needed (asthma). 1 each Active Nebulizers misc 1 kit Every 4-6 hours as needed (shortness of breath, wheezing). Accerlon nebulizer given in walk in 12/20/24 education provided Active cetirizine (ZyrTEC) 10 MG tabletIndications :Seasonal allergies TAKE 1 TABLET BY MOUTH EVERY DAY 30 tablet 2 Active albuterol 108 (90 Base) MCG/ACT inhaler INHALE 2 PUFFS BY MOUTH EVERY 4 TO 6 HOURS NEEDED 8.5 g 3 Active hydroCHLOROthiazi de 12.5 MG tabletIndications :HTN (hypertension), benign TAKE 1 TABLET BY MOUTH EVERY DAY 30 tablet 1 Active budesonide-formot jake (Symbicort) 160-4.5 MCG/ACT inhaler Inhale 2 puffs in the morning and at bedtime. Rinse mouth with water after use to reduce aftertaste and incidence of candidiasis. Do not swallow. 1 each 5 025 2025 Active predniSONE (Deltasone) 20 MG tablet Take 2 tablets (40 mg) by mouth Once per day for 4 doses. 8 tablet 025 2024 Active Fluticasone-Salme terol 500-50 MCG/ACT aerosol powder INHALE 1 PUFF BY MOUTH TWICE DAILY, RINSE MOUTH AFTER USING. 180 each 3 024 2024 Discontinued(I neffective) hydroCHLOROthiazi de 12.5 MG tabletIndications :HTN (hypertension), benign TAKE 1 TABLET BY MOUTH DAILY 30 tablet 1 025 2024 Discontinued Hospital, Clinic, or Other Facility Administered Medication Ordered Dose Route Frequency Start Date End Date Status predniSONE (Deltasone) tablet 40 mgIndications:Mild intermittent asthma with exacerbation 40 mg PO Once 07/31/2025 07/31/2025 Ended Active Problems Problem Noted Date Diagnosed [...] nose drops to loosen mucus Take Acetaminophen (Tylenol )/Ibuprofen as needed to reduce fever, headache, body [...] Asthma 12/23/2023 Lung mass 12/23/2023 Overview (12/23/2023): [facility] CT: 3mm, noncalcified, follow-up depends they write on the clinical scendario, consider followup imaging at least iwthin the 12 months . alspo scan mentions some mild scarring/atelectasis, right modd lobe, and both lower lobes, associated with trace free fluid Mass of thyroid gland 12/23/2023 Overview (12/23/2023): per 2005 CT. US recommended ( follow-up uncertain, pending records) TSH [place] 2014 Assessment & Plan (12/23/2023 6:03 PM EST): -Patient reports discharge from endocrinology -no evidence of goiter, thyroid enlargement noted on physical exam -TSH ordered to eval function -will obtain endocrine notes Tinnitus 12/23/2023 Overview (12/23/2023): per [facility] encounter reason ( per ICD-9 code) Assessment [...] -follow-up 1 month Dizziness 12/23/2023 Overview (12/23/2023): [facility] February 2012 Assessment & Plan (02/23/2024 [...] Encounters Date Type Department Care Team Description 07/31/2025 9:00 AM EDT Office Visit [facility] [address] [place] [address] Mild intermittent asthma with exacerbation (Primary Dx); HTN (hypertension), benign 07/31/2025 Travel 07/26/2025 Refill [facility] [address] [place] [address] Merissa Roque NP HTN (hypertension), benign 06/14/2025 Refill [facility] [address] [place] [address] Pedro Lara MD 05/20/2025 Refill [facility] [address] [place] [address] Merissa Roque NP HTN (hypertension), benign 05/07/2025 Refill [facility] [address] [place] [address] Pedro Lara MD from Last 3 Months Immunizations Immunization Administration Dates Next Due Hep B, adult [...] 12.8 oz) 07/31/2025 9:01 AM EDT Height 165.1 cm (5' 5 ) 09/14/2024 10:1 8 AM EST Body Mass Index 32.08 09/14/2024 10:18 AM EST Plan of Treatment Health Maintenance Due Date Last Done Comments CT Colonography 1975 Colonoscopy 1975 FIT 1975 Sigmoidoscopy 1975 Disability Screening 1975 Alcohol/Substance Use Screening 1987 Family Planning (PISQ) 1990 Pneumococcal Vaccine: 50+ Years (1 of 2 - PCV) 1994 Hepatitis B Vaccines (2 of 3 - 19+ 3-dose series) 08/13/2012 07/16/2012 Depression Screening 12/23/2024 12/23/2023, 12/23/19 24 SDOH Screening 12/23/2024 12/23/2023 Zoster Vaccines (1 of 2) 2025 COVID-19 Vaccine ( - season) 2025 10/10/2021, 12/06/2020, 11/08/2020 Influenza Vaccine (#1) 2025 , 08/21/2021, 07/18/2020, Additional history exists Mammogram 11/04/2025 11/04/2024, 07/23/2023 FOBT 12/17/2025 12/17/2024 Tobacco Screening 07/31/2026 07/31/2025 Colorectal Cancer Screening 12/17/2027 FIT DNA/Cologuard 12/17/2027 12/17/2024 Cervical Cancer Screening 06/17/2028 HPV/Cotest 06/17/2028 Pap Smear 06/17/2028 06/17/2023, 06/17/2023 Lipid Panel 12/23/2028 12/24/2023 DTaP/Tdap/Td [...] patient's age to complete this topic Meningococcal B Vaccine Aged Out No l onger eligible based on patient's age to complete [...] AM EDT Mild intermittent asthma with exacerbation LAB COLOGUARD COLON CANCER SCREEN Routine 12/17/2024 10:05 AM EST Colon cancer screening HEPATITIS C AB W/REFL TO HCV RNA, QN, PCR Routine 11/09/2024 11:45 AM EST Encounter for health-related screening HIV 1/2 ANTIGEN/ANTIBODY, FOURTH GENERATION W/RFL Routine 11/09/2024 11:45 AM EST Encounter for health-related screening BI MAMMOGRAM SCREENING TOMOSYNTHESIS BILATERAL Routine 11/04/2024 11:00 AM EST Encounter for screening mammogram for malignant neoplasm of breast LIPID PANEL, STANDARD Routine 12/24/2023 8:30 AM EST Obesity (BMI 35.0-39.9 without comorbidity) PAP SMEAR Routine 06/17/2023 10:25 AM EDT from Last 3 Months or Most Recently Relevant to Health Maintenance Results * XR Chest 2 Views (07/31/2025 9:28 AM EDT) Anatomical Region Laterality Modality Chest Radiographic Sejal ging 07/31/2025 9:28 AM EDT Narrative 07/31/2025 9:34 AM EDT [address] [address] XRay Report Signed Patient: Annmarie Cortez MR#: [id number] : 1975 Acct:[id number] Age/Sex: 50 / F ADM Date: 07/31/25 Loc: LIZABETHCX Attending Dr: Pedro Lara MD Ordering Physician: PEDRO LARA MD Date of Service: 07/31/25 Procedure(s): XR chest 2V Accession Number(s): [id number] cc: PEDRO LARA MD Reason for Exam: productive cough EXAMINATION: [...] in OV> 07/31/25930 DD/ 7 TD/TT: 07/31/25927 Injector Assembler: Procedure Note Donotuseinterpreter, Image - 07/31/[address] [address] XRay Report Signed Patient: Annmarie Cortez MMR#: [id number] : 1975Acct:[id number] Age/Sex: 50 / FADM Date: 07/31/25 Loc: POPEYEX Attending Dr: Pedro Lara MD Ordering Physician: PEDRO LARA MD Date of Service: 07/31/25 Procedure(s): XR chest 2V Accession Number(s): [id number] cc: PEDRO LARA MD Reason for Exam: productive cough EXAMINATION: [...] in OV> 07/31/25930 DD/ 7 TD/TT: 07/31/25927 Injector Assembler: Pedro Lara MD IMG XR PROCEDURES Final Result * Cologuard?? colon cancer screening (12/17/2024 10:05 AM EST) Cologuard Result Negative Negative 12/21/19 7:53 AM EST [employer] (CLIA #:[id number]) Comment: NEGATIVE TEST RESULT. A negative Cologuard result indicates a low likelihood that a colorectal cancer (CRC) or advanced adenoma (adenomatous polyps with more advanced pre-malignant features) is present. The chance that a person with a negative Cologuard test has a colorectal cancer is less than 1 in 1500 (negative predictive value >99.9%) or has an advanced adenoma is less than 5.3% (negative predictive value 94.7%). These data are based on a prospective cross-sectional study of 10,000 individuals at average risk for colorectal cancer who were screened with both Cologuard and colonoscopy. (Cyndie Kenney. et al, N Engl J Med 2014;370(14):2730-7490) The normal value (reference range) for this assay is negative. COLOGUARD RE-SCREENING RECOMMENDATION: Periodic colorectal cancer screening is an important part of preventive healthcare for asymptomatic individuals at average risk for colorectal cancer. Following a negative Cologuard result, the [place] [employer] Society and U.S. Multi-Society Task Force screening guidelines recommend a Cologuard re-screening interval of 3 years. References: [place] [employer] Guideline for Colorectal Cancer Screening: https://www.cancer.org/cancer/jrxzp-lkqpvm-kzyazh/kefufzqzp-fflnompdt-xcldpkt/ac s-rec ommendations.html.; Minor SCHULTZ, Sherine SERVIN, Soo MEJIA, Colorectal Cancer Screening: Recommendations for Physicians and Patients from the U.S. Multi-Society Task Force on Colorectal Cancer Screening , Am J Gastroenterology 2017; 112:7090-3862. TEST DESCRIPTION: Composite algorithmic analysis of stool DNA-biomarkers with hemoglobin immunoassay. Quantitative values of individual biomarkers are not reportable and are not associated with individual biomarker result reference ranges. Cologuard is intended for colorectal cancer screening of adults of either sex, 45 years or older, who are at average-risk for colorectal cancer (CRC). Cologuard has been approved for use by the U.S. FDA. The performance of Cologuard was established in a cross sectional study of average-risk adults aged 50-84. Cologuard performance in patients ages 45 to 49 years was estimated by sub-group analysis of near-age groups. Colonoscopies performed for a positive result may find as the most clinically significant lesion: colorectal cancer [4.0%], advanced adenoma (including sessile serrated polyps greater than or equal to 1cm diameter) [20%] or non- advanced adenoma [31%]; or no colorectal neoplasia [45%]. These estimates are derived from a prospective cross-sectional screening study of 10,000 individuals at average risk for colorectal cancer who were screened with both Cologuard and colonoscopy. (Cyndie Bone et al, N Engl J Med 2014;370(14):9973-4962.) Cologuard may produce a false negative or false positive result (no colorectal cancer or precancerous polyp present at colonoscopy follow up). A negative Cologuard test result does not guarantee the absence of CRC or advanced adenoma (pre-cancer). The current Cologuard screening interval is every 3 years. ([place] [employer] Society and U.S. Multi-Society Task Force). Cologuard performance data in a 10,000 patient pivotal study using colonoscopy as the reference method can be accessed at the following location: www.[employer]/results. Additional description of the Cologuard test process, warnings and precautions can be found at www.cologuard.com. Stool specimen (specimen) 12/17/2024 10:05 AM EST 12/19/2024 11:12 AM EST [facility] LAB MOLECULAR DIAGNOSTICS ORDER SHONDA Final Result Performing Organization Address City/[facility]/ZIP Co de Phone Number [employer] (CLIA #:[id number]) [address] [place] [address], * Hepatitis C Antibody with Reflex to HCV, RNA, Quantitative, Real-Time PCR (11/09/2024 11:45 AM EST) Hepatitis C Antibody Nonreactive Nonreactive [facility] Comment:Antibodies to HCV no t detected; does not exclude early acuteHCV infection. Blood Venous blood specimen / Unknown 11/09/2024 11:45 AM EST 11/09/2024 1:05 PM EST [facility] LAB BLOOD ORDERABLES Final Resu lt Performing Organization Address [facility] Co de Phone Number [facility] [address] [place] [phone] * HIV-1/2 Antigen and Antibodies, Fourth Generation, with Reflexes (11/09/2024 11:45 AM EST) HIV AB/AG Nonreactive Nonreactive [facility] Comment:HIV-1 p24 Ag and/or HIV-1/HIV-2 Ab not detected.A test result that is nonreactive does not exclude thepossibility of exposure to or infection with HIV-1 and/orHIV-2. Nonreactive results in this assay for individualswith prior exposure to HIV-1 and/or HIV-2 may be due toantigen and antibody levels that are below the limit ofdetection of this assay.The [employer] HIV Ag/Ab Combo assay result andsupplemental assay results should be interpreted inconjunction with the patient's clinical presentation,history and other laboratory results. If the results areinconsistent with clinical evidence, additional testing issuggested to confirm the result. Blood Venous blood specimen / Unknown 11/09/2024 11:45 AM EST 11/09/2024 1:05 PM EST Merissa Roque [employer] LAB BLOOD ORDERABLES Final Resu lt [facility] [address] [place] [phone] * BI Mammogram Screening Tomosynthesis Bilateral (11/04/2024 11:00 AM EST) Anatomical Region Laterality Modality Breast Bilateral Mammography 11/04/2024 11:0 0 AM EST Narrative 11/11/2024 4:03 PM EST [address] [place] [address] Mammography Report Signed Patient: Annmarie Cortez MR#: [id number] : 1975 Acct:[id number] Age/Sex: 49 / F ADM Date: 11/04/24 Loc: HO.MAMMO Attending Dr: Merissa Roque Ordering Physician: Merissa Roque Results: 1Negative Date of Service: 11/04/24 Follow Up: 1 Year From [facility] Mammogram Procedure(s): MM tomosynthesis screening BI Accession Number(s): [id number] cc: Merissa Roque; Jared Cano MD EXAMINATION: [...] 11/11/24 1601 DD/ 1100 TD/TT: 11/04/24 1125 Injector Assembler: Procedure Note Donotuseinterpreter, Image - 11/11/20[facility] [address] [place], [place] [address] Mammography Report Signed Patient: Annmarie Cortez MMR#: [id number] : 1975Acct:[id number] Age/Sex: 49 / FADM Date: 11/04/24 Loc: AMBAR Attending Dr: Merissa Roque Ordering Physician: Merissa RoqueResults: 1Negative Date of Service: 11/04/24Follow Up: 1 Year From Orig inal Mammogram Procedure(s): MM tomosynthesis screening BI Accession Number(s): [id number] cc: Merissa Roque; Jared Cano MD EXAMINATION: [...] 11/11/24 1601 DD/ 1100 TD/TT: 11/04/24 1125 Injector Assembler: us Merissa Roque NP IMG BI PROCEDURES Edited Result - Final * (ABNORMAL) Lipid Panel, Standard (12/24/2023 8:30 AM EST) Triglycerides 54 <150 mg/dL [facility] Comment:Desirable Triglyceri de: less than 150 mg/dLBorderline High Triglyceride 150-199 mg/dLHigh Triglyceride: 200-499 mg/dLVery High Triglyceride: greater than or equal to 5OO mg/dL Cholesterol 190 <200 mg/dL [facility] Comment:Desirable Cholestero l: less than 200 mg/dLBorderline High Cholesterol: 200-239 mg/dLHigh Cholesterol: greater than 239 mg/dL LDL Cholesterol Calculated 110(H) <100 mg/dL [facility] Comment:Desirable LDL: less than 100 mg/dLNear Optimal/Above Optimal LDL: 110- 129 mg/dLBorderline High LDL: 130-159 mg/dLHigh LDL: 160-189 mg/dLVery High LDL: greater than or equal to 190 mg/dL HDL Cholesterol 70 >40 mg/dL [facility] Comment:Desirable HDL: great er than 40 mg/dL Note: This HDL assay may give artificially low results in patients with liver disease. Blood Venous blood specimen / Unknown 12/24/2023 8:30 AM EST 12/24/2023 11:27 AM EST us Merissa Roque NP LAB BLOOD ORDERABLES Final Resu lt [facility] [address] [place] [address] [phone] * Pap Smear (06/17/2023 10:25 AM EDT) 06/17/2023 10:2 5 AM EDT 06/19/2023 8:50 AM EDT [facility] - 07/04/2023 2:10 PM EDT ----- ------- Name: Annmarie Cortez Age/Sex: 48/F : 1975 Unit#: [id number] Attend Dr: Celia Contreras CNM Re06/17/23 Status: [facility] REF Location: [facility] Disch: ----- ------- SPEC : [id number] RECD: 06/19/23 STATUS: MELISSA HARDEN NUM: [id number] VALERIE: 06/17/23-[address] [facility] [address]: Celia Contreras ENTERED: 06/19/23 SP TYPE: Pap Smr ANIHR DR: Lita Angel MD ORDERED: Pap Smear Interpretation Satisfactory for evaluation. Negative for intraepithelial lesion or malignancy. HPV mRNA E6/E7: NOT DETECTED This assay detects E6/E7 viral messenger RNA (mRNA) from 14 high-risk HPV types (16, 18, 31, 33, 35, 39, 45, 51, 52, 56, 58, 59, 66, 68) HPV testing performed by [employer] [facility], [place], [place]. See reference laboratory portion of the EMR for entire report. Clinical Information LMP:05/15/23 Previous PAP test:2018, WNL Material Received ThinPrep-Cervical Copies To: Lita Angel MD [address] [place] [address] Celia Contreras [address] Ewing [address] [place] [phone] ----- ------- Signed (signature on file) Kristina Mcqueen Antonia 07/04/23 1410 ----- ------- END OF REPORT [facility] External Provider LAB CYT [facility] ORDERABLES Final Result [facility] [address] [place] [address] [phone] from Last 3 Months or Most Recently Relevant to Health Maintenance Insurance Care Teams Denier Control Operator Relationship Specialty Start Date End Date Merissa Roque NP [address] [place] [phone] PCP - General Family Medicine 12/22/23
--- OUTSIDE RECORDS SUMMARY | 2025-07-31 10:33 | XMS_ITS | Encounter Summary ---
Author Organization [employer] Address [address] [place] [address] Care Team Providers Care Exhibition Carver Name Role Phone Merissa Roque NP Primary Care Provider [phone] Encounter Details Date Type Department Care Team (Latest Contact Info) Description 07/31/2025 Travel Social History Tobacco Use Types Packs/Day Years [...] documented as of this encounter Care Teams Exhibition Carver Relationship Specialty Start Date End Date Merissa Roque NP [address] [place] [phone] PCP - General Family Medicine 12/22/23 documented as of this encounter
--- OUTSIDE RECORDS SUMMARY | 2025-07-31 10:33 | XMS_ITS | Encounter Summary ---
Author Organization [employer] Address [address] [facility] 7[address] [place] [address] Care Team Providers Care Fios Line Installer Name Role Phone Merissa Roque NP Primary Care Provider [phone] Reason for Visit * Reason Comments Med Refill Encounter Details Date Type Department Care Team ([facility] st Contact Info) Description 07/26/2025 Refill [facility] [address] [place] [address] Merissa Roque NP [address] [place] [address] HTN (hypertension), benign Social History Tobacco Use [...] documented as of this encounter Care Teams Fios Line Installer Relationship Specialty Start Date End Date Merissa Roque NP [address] [place] [address] PCP - General Family Medicine 12/22/23 documented as of this encounter
--- OUTSIDE RECORDS SUMMARY | 2025-07-31 10:33 | XMS_ITS | Encounter Summary ---
Author Organization [employer] Address [address] [facility] 7[address] [place] [address] Care Team Providers Care Kieselguhr Regenerator Operator Name Role Phone Nuvia Irwin CORRECTIONAL FOOD SERVICE SUPERVISOR Primary Care Provider [phone] Merissa Roque STORE STOCKER Primary Care Provider [phone] Reason for Visit * Reason Onset Date Comments r/s appt 08/25/2023 Encounter Details Date Type Department Care Team (Late st Contact Info) Description 08/25/2023 Telephone [facility] MEDICINE [address] [place] [address] [place] [facility] [address] [place] [address] r/s appt Social History Tobacco Use Types [...] on filedocumented in this encounter Care Teams Kieselguhr Regenerator Operator Relationship Specialty Start Date End Date Nuvia Irwin FNP [address] [place] [address] PCP - General Family Medicine 12/30/22 11/25/23 Merissa Roque NP [address] [place] [address] PCP - General Family Medicine 12/22/23 documented as of this encounter
--- OUTSIDE RECORDS SUMMARY | 2025-07-31 10:33 | XMS_ITS | Encounter Summary ---
Author Organization [facility] Address [address] [facility] [address] [address] Care Team Providers Care Truck Body Builder Apprentice Name Role Phone Nuvia Irwin Primary Care Provider [phone] Merissa Roque NP Primary Care Provider [phone] Reason for Visit * Reason Comments Med Refill Encounter Details Date Type Department Care Team (Late st Contact Info) Description 09/24/2023 Refill [facility] MEDICINE [address] [place] [address] Lita Angel MD [address] [place] [address] Social History Tobacco Use Types Packs/Day Years [...] on filedocumented in this encounter Care Teams Truck Body Builder Apprentice Relationship Specialty Start Date End Date Nuvia Irwin FNP [address] [place] [address] PCP - General Family Medicine 12/30/22 11/25/23 Merissa Roque NP [address] [place] [address] PCP - General Family Medicine 12/22/23 documented as of this encounter
== END 2025-07-31 09:21 | disposition home or self-care (01) ==
LOC: HO.HHCX 09:20
PROVIDERS: Visit Provider Emergency Medicine
DX: J45.21 Mild intermittent asthma with (acute) exacerbation (principal)
CPT/HCPCS: 71046

== ENCOUNTER → 2025-07-31 09:20 | Outpatient (BNV) | payer OTHER, SELFPAY | PROVIDERS: Visit Provider Radiology Diagnostic Radiology | DX: R05.8 Other specified cough (principal) | CPT/HCPCS: 71046 ==

== ENCOUNTER 2025-08-22 09:51 | Outpatient (AMB) | payer OTHER, SELFPAY ==
--- NOTE | 2025-08-22 10:19 | MHC.OFFVIS ---
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 Creative Services Specialist: Creative Services Specialist Present (Liz) Accompanied by: Self / Same As Patient Allergies penicillin V Allergy (Unknown, Verified 08/22/25 10:40) rash Medication List - Last Reconciled 08/22/25 by Celia Contreras CNM albuterol sulfate 90 mcg/actuation 2 puffs inhalation Q6H PRN fluticasone propion-salmeterol 500-50 mcg/dose (Advair Diskus) 1 inh inhalation BID fluticasone propionate 50 mcg/actuation (Flonase Allergy Relief) 1 spray intranasal DAILY Patient : No HPI HPI 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 She is not having any issues at all sometimes she skips a period. She is not really having any major issues with hot flashes. Sometimes she gets emotional she is thinks that is about the only symptom she gets. Her grandmother who she was very close with past a year ago last May but the family still has close memories She is sexually active with her due has a vasectomy and she has no concerns at all about STIs. She is not due for Pap smear as she had 1 last year and her mammogram was at the beginning of the year and it was negative. She works full-time at the [employer] downstairs and she is always very busy at work. She sees her primary care provider but does not have any health concerns. [facility] Medical History Asthma Family History Mother HTN (hypertension) Diabetes Father HTN (hypertension) Sleep apnea Social History Alcohol intake: never Patient Tobacco Use Status: Never used Tobacco Gender identity: Female Female Reproductive History Menstrual Age of Menarche: 9 Date of last menstrual period: 07/29/25 control method: none Total pregnancies: 2 Full term: 2 Date of last pap smear: 06/17/23 (negative pap smear, negative hpv ) Date of Mammogram: 11/04/24 (bi rad 1) Physical Exam Vital Signs: Last Vital Signs BP 118/72 08/22/25 10:41 BMI result Body Mass Index 32.3 Const General: healthy appearing, comfortable, no acute distress, well developed and alert Nutritional Appearance: average body habitus Orientation/consciousness: patient oriented x3 Limitations: no limitations HEENT Head: Yes normocephalic Neck Neck: Yes normal visual inspection Chest Chest palpation & inspection: normal inspection of the chest Breast/axilla inspection: normal inspection of the breasts and normal inspection of the axillae Breast/axilla palpation: normal palpation of the breasts and normal palpation of the axillae Resp Effort & Inspection: normal respiratory effort GI Inspection: Yes normal to inspection, No Abdominal wall edema and No distended Palpation (GI): Soft to palpation and nontender General: Yes bladder normal to palpation External Female Exam: normal external appearance and normal appearance of the urethra Speculum Exam - Vagina: normal appearance of the vagina, normal palpation and normal vaginal discharge Speculum Exam - Cervix: normal appearance of the cervix, normal palpation and nontender Bimanual exam- vagina & uterus: normal bimanual exam, normal palpation, uterine size normal, bladder normal to palpation, consistency normal, normal palpation, uterine mobility normal, uterine shape normal, No Cervical tenderness present, non-tender and no cervical motion tenderness Bimanual Exam- Adnexa, other: normal adnexae, no masses, normal and No adnexal tenderness Neuro General: patient oriented x3 Assessment & Plan Assessment & Plan (1) Well woman exam with routine gynecological exam: Code(s): Z01.419 - Encounter for gynecological examination (general) (routine) without abnormal findings Category: Medical (2) Cervical cancer screening: Comment: hx neg paps- last done 2017, 2022= negative with negative HPV. Code(s): Z12.4 - Encounter for screening for malignant neoplasm of cervix Category: Medical (3) Perimenopause: Code(s): N95.1 - Menopausal and female climacteric states Category: Medical Plan -----Discussed in this visit the following: healthy balanced diet, regular and consistent exercise, getting recommended health screens, doing the best she can for her particular health concerns, kegel exercises, pap smear screening and followup recommendations, mammography screening and SBE, normal changes in cycles in her life stage--- . Reviewed how she is doing with life and family and work and keeping herself healthy and she is doing very well RTC 1 year. Coding Level of Care Code Est Pt Prev Care 40-64y(48071) Diagnoses Well woman exam with routine gynecological exam Z01.419 Cervical cancer screening Z12.4 Perimenopause N95.1
[2025-08-22 10:41] VITALS: BP 118/72; BMI 32.3
--- OUTSIDE RECORDS SUMMARY | 2025-08-22 11:33 | XMS_ITS | Data Portability ---
Author Organization [place] - [facility], Allergy Address [address] [place] [id number] Care Team Providers Care Whip Operator Name Role Phone Unavailable Primary Care Provider Assessment Encounter Date Assessment [...] this plan and has no further questions. [email or web address] Not available 08/05/2024 14:31:11 Plan of Treatment Reminders Order Date Submit Date Provider Last Modified By Organization Details Last Modified Time Details Appointments None recorded. Lab None recorded. Referral None recorded. Procedures None recorded. Surgeries None recorded. Imaging CT, temporal bone, w/o contrast 2023 024 [facility], [address] [place] [address], [place], [address], 15:28:37 Medication Orders None recorded. Patient TargetsNo targets recorded. Patient InstructionsNo instructions recorded. Reason for Referral None Reported. Results Created Date Observation Date Name Description Value Unit Range Abnormal Flag Note LastModifiedBy Organization Detail LastModifiedTime 08/05/20 24 audio gram No observ ation record ed. [email or web address] Not Available 08/2024 14:03:31 08/05/[address], tempo ral bone, w/o contr ast No observ ation record ed. [email or web address] [facility] [address], [place], [address], 08/05/2024 14:31:33 Result Notes None recorded. Problems Name Problem SNOMED Code Status Onset Date Resolution Date Notes Provider Name and Address Organization Details Recorded Time Abnormal auditory perception 10722514 Active 024 Rossi greenberg [place] [facility] 4 13:03:12 Problem Notes None recorded. Procedures Surgical History Date Name Laterality Status Provider Name and Address Organization Details Recorded Time 08/05/2024 Comp Audio with Tymps - 51381 & 20657 completed Rossi Langley [place] [facility] 08/05/2024 13:03:06 Imaging Results None recorded. Procedure Notes None recorded. Medical Equipment None Reported. Allergies Allergen ID Allergen Name Allergen Category Reaction Reaction Severity Criticality Documentation Date Start Date Code Code System Note Provider Name and Address Organization Details Recorded Time 538285 Product containin g penicilli n (product) medicatio n Not available Not available Not available 08/05/2024 64370 8001 SNOMED Robbide Carlos greenberg [place] [facility] 4 13:36:42 Medications Name Sig Start Date Stop [...] Updated DateTime 08/05/2024 165.1 cm 32.1 kg/m2 07563.33 g Chayito Gonzalez [facility] 08/05/2024 13:36:23 Social History None recorded. Functional Status None recorded. Mental Status None recorded. Family History Nothing Reported. Medical History Condition Response Allergies/Hayfever Y Emphysema Y Hypertension Y Asthma Y Gynecological HistoryNo gynecological history recorded. Obstetrics History GPAL:G 0 P 0 0 0 0 Past Encounters Encounter ID Performer Location Encounter Start Date Encounter Closed Date Diagnosis/Indication Diagnosis SNOMED-CT Code Diagnosis ICD10 Code Diagnosis IMO Codes Diagnosis Note [id number] SILAS HERNANDEZ PA-C [facility] [address] [address] 08/05/2024 12:41:07 08/05/2024 14:00:23 Abnormal auditory perception 32170958 H93.299 Audiologic al evaluation results: Right ear: Normal hearing with excellent word recognitio n. Left ear: Essentiall y normal hearing with excellent word recognitio n. Tympanomet ry: Right Ear:Type A Left Ear:Type A Health Concerns Section Related Observation LastModified by Organization Detai ls LastModified Time None Recorded Concern Status LastModified by Organization Details LastModified Time None Recorded Advance Directives Directive None Recorded Payers Insurance Date Sequence Insurance Name Policy Number Policy Vazquez Covered Member ID Vazquez Member ID Guarantor Name 08/05/2024 1 [facility] [id number] 01 Annmarie Cortez [id number] Annmarie Cortez Notes Date Note Type Note Provider Name and Address Organization Details Recorded Time 08/05/2024 text/html ROS as noted in the HPI 49-year-old female presents for evaluation of bilateral tinnitus and [...] to 15 years. SILAS HERNANDEZ PA-C [address] [place] [address], [place], [address], [facility] - [facility] 08/05/2024 14:32:34 OBGyn Episode No OBEpisode recorded.
--- OUTSIDE RECORDS SUMMARY | 2025-08-22 11:33 | XMS_ITS | Encounter Summary ---
Author Organization [employer] Address [address] [facility] [address] [address] Care Team Providers Care Waxing Machine Operator Helper Name Role Phone Nuvia Irwin Primary Care Provider [phone] Merissa Roque NP Primary Care Provider [phone] Reason for Visit * Reason Comments Med Refill Encounter Details Date Type Department Care Team (Late st Contact Info) Description 09/24/[address] [facility] MEDICINE [address] [place] [address] Lita Angel MD [address] [place] [address] Social History Tobacco Use Types Packs/Day Years [...] on filedocumented in this encounter Care Teams Waxing Machine Operator Helper Relationship Specialty Start Date End Date Nuvia Irwin FNP [address] [place] [address] PCP - General Family Medicine 12/30/22 11/25/23 Merissa Roque NP [address] [place] [address] PCP - General Family Medicine 12/22/23 documented as of this encounter
--- OUTSIDE RECORDS SUMMARY | 2025-08-22 11:33 | XMS_ITS | Encounter Summary ---
Author Organization [employer] Address [address] [facility] 7[address] [place] [address] Care Team Providers Care Frozen Food Department Manager Name Role Phone Nuvia Irwin NOTCHED BLADE LOADER Primary Care Provider [phone] Merissa Roque DIRECT MARKETING SPECIALIST Primary Care Provider [phone] Reason for Visit * Reason Onset Date Comments r/s appt 08/25/2023 Encounter Details Date Type Department Care Team (Late st Contact Info) Description 08/25/2023 Telephone [facility] MEDICINE [address] [place] [address] [place] [address] [place] [address] r/s appt Social History Tobacco Use Types [...] on filedocumented in this encounter Care Teams Frozen Food Department Manager Relationship Specialty Start Date End Date Nuvia Irwin FNP [address] [place] [address] PCP - General Family Medicine 12/30/22 11/25/23 Merissa Roque NP [address] [place] [address] PCP - General Family Medicine 12/22/23 documented as of this encounter
--- OUTSIDE RECORDS SUMMARY | 2025-08-22 11:33 | XMS_ITS | Clinical Summary ---
Author Organization [employer] Address [address] [facility] 7t [place] [address] Care Team Providers Care Logistics And Planning Manager Name Role Phone Merissa Roque NP Primary Care Provider [phone] Allergies Active Allergy Reactions Criticality Noted Date [...] swallow. 1 each 5 025 2025 Active Fluticasone-Salme terol 500-50 MCG/ACT aerosol powder INHALE 1 PUFF BY MOUTH TWICE DAILY, RINSE MOUTH AFTER USING. 180 each 3 024 2024 Discontinued(I neffective) hydroCHLOROthiazi de 12.5 MG tabletIndications :HTN (hypertension), benign TAKE 1 TABLET BY MOUTH DAILY 30 tablet 1 025 2024 Discontinued predniSONE (Deltasone) 20 MG tablet Take 2 tablets (40 mg) by mouth Once per day for 4 doses. 8 tablet 025 2024 Hospital, Clinic, or Other Facility Administered Medication [...] Asthma 12/23/2023 Lung mass 12/23/2023 Overview (12/23/2023): [facility] CT: 3mm, noncalcified, follow-up depends they write [...] endocrine notes Tinnitus 12/23/2023 Overview (12/23/2023): per [facility] encounter reason ( per ICD-9 code) [...] Dizziness 12/23/2023 Overview (12/23/2023): [facility] dann summary February 2012 Assessment & Plan (02/23/2024 [...] Description 07/31/2025 9:00 AM EDT Office Visit [facility] [address] [place] [address] Pedro Lara MD Mild intermittent asthma with exacerbation (Primary Dx); HTN (hypertension), benign 07/31/2025 Travel 07/26/2025 Refill [facility] [address] [place] [address] Merissa oRque NP HTN (hypertension), benign 06/14/2025 Refill [facility] [address] [place] [address] Pedro Lara MD from Last 3 Months [...] the past 12 months, has t he [employer], oil or water company threatened to [...] AM EDT Narrative 07/31/2025 9:34 AM EDT [address] [address] XRay Report Signed Patient: Annmarie Cortez MR#: [id number] : 1975 Acct:[id number] Age/Sex: 50 / F ADM Date: 07/31/25 Loc: HHCX Attending Dr: Pedro Lara MD Ordering Physician: PEDRO LARA MD Date of Service: 07/31/25 Procedure(s): XR chest 2V Accession Number(s): [id number] cc: PEDRO LARA MD Reason for Exam: [...] in OV> 07/31/25930 DD/ 7 TD/TT: 07/31/25927 Security Screener: Procedure Note Donotuseinterpreter, Image - 07/31/[address] [address] XRay Report Signed Patient: Annmarie Cortez MMR#: [id number] : 1975Acct:[id number] Age/Sex: 50 / FADM Date: 07/31/25 Loc: HO.HHCX Attending Dr: Pedro Lara MD Ordering Physician: PEDRO LARA MD Date of Service: 07/31/25 Procedure(s): XR chest 2V Accession Number(s): [id number] cc: PEDRO LARA MD Reason for Exam: [...] in OV> 07/31/25930 DD/ 7 TD/TT: 07/31/25927 Security Screener: Pedro Lara MD IMG XR PROCEDURES Final Result * Cologuard?? colon cancer screening (12/17/2024 10:05 AM EST) Cologuard Result Negative Negative 12/21/19 7:53 AM EST [employer] (CLIA #:[id number]) Comment: NEGATIVE TEST RESULT. A negative Cologuard [...] Bone et al, N Engl J Med 2014;370(14):4528-3900) The normal value (reference range) for this assay is negative. COLOGUARD RE-SCREENING RECOMMENDATION: Periodic colorectal cancer screening is an important part of preventive healthcare for asymptomatic individuals at average risk for colorectal cancer. Following a negative Cologuard result, the [place] [employer] Society and U.S. Multi-Society Task Force screening guidelines recommend a Cologuard re-screening interval of 3 years. References: [place] [employer] Society Guideline for Colorectal Cancer Screening: https://www.cancer.org/cancer/vpcxu-yntvwa-uzjsjy/huryawjbo-fzrslulsc-kmrebap/ac s-rec ommendations.html.; Minor DK, Sherine SERVIN, Soo MEJIA, Colorectal Cancer Screening: Recommendations for Physicians and Patients from the U.S. Multi-Society Task Force on Colorectal Cancer Screening , Am J Gastroenterology 2017; 112:0056-7485. TEST DESCRIPTION: Composite algorithmic analysis of stool [...] Kenney. et al, N Engl J Med 2014;370(14):5967-7814.) Cologuard may produce a false negative or false positive result (no colorectal cancer or precancerous polyp present at colonoscopy follow up). A negative Cologuard test result does not guarantee the absence of CRC or advanced adenoma (pre-cancer). The current Cologuard screening interval is every 3 years. ([place] [employer] Society and U.S. Multi-Society Task Force). Cologuard performance data in a 10,000 patient pivotal study using colonoscopy as the reference method can be accessed at the following location: www.Danal d/b/a BilltoMobile.Skim.it/results. Additional description of the Cologuard test process, warnings and precautions can be found at www.ScalingDataoguard.com. Stool specimen (specimen) 12/17/2024 10:05 AM EST 12/19/2024 11:12 AM EST [facility] LAB MOLECULAR DIAGNOSTICS ORDER SHONDA Final Result Performing Organization Address City/[facility]/ZIP Co de Phone Number [employer] (CLIA #:[id number]) [address] [place] [address], * Hepatitis C Antibody with Reflex to HCV, RNA, Quantitative, Real-Time PCR (11/09/2024 11:45 AM EST) Hepatitis C Antibody Nonreactive Nonreactive [facility] Comment:Antibodies to HCV no t detected; does not exclude early acuteHCV infection. Blood Venous blood specimen / Unknown 11/09/2024 11:45 AM EST 11/09/2024 1:05 PM EST [facility] LAB BLOOD ORDERABLES Final Resu lt Performing Organization Address [facility] Co de Phone Number [facility] [address] [place] [phone] * HIV-1/2 Antigen and Antibodies, Fourth Generation, with Reflexes (11/09/2024 11:45 AM EST) HIV AB/AG Nonreactive Nonreactive [facility] Comment:HIV-1 p24 Ag and/or HIV-1/HIV-2 Ab not detected.A test result that is nonreactive does not exclude thepossibility of exposure to or infection with HIV-1 and/orHIV-2. Nonreactive results in this assay for individualswith prior exposure to HIV-1 and/or HIV-2 may be due toantigen and antibody levels that are below the limit ofdetection of this assay.The SeeClickFixniStyleCaster HIV Ag/Ab Combo assay result andsupplemental assay results should be interpreted inconjunction with the patient's clinical presentation,history and other laboratory results. If the results areinconsistent with clinical evidence, additional testing issuggested to confirm the result. Blood Venous blood specimen / Unknown 11/09/2024 11:45 AM EST 11/09/2024 1:05 PM EST us Merissa Roque APPLIANCE SERVICE TECHNICIAN LAB BLOOD ORDERABLES Final Resu lt [facility] [address] [place] [address] [phone] * BI Mammogram Screening Tomosynthesis Bilateral (11/04/2024 11:00 AM EST) Anatomical Region Laterality Modality Breast Bilateral Mammography 11/04/2024 11:0 0 AM EST Narrative 11/11/2024 4:03 PM EST [facility] [address] [place] [address] Mammography Report Signed Patient: Annmarie Cortez MR#: [id number] : 1975 Acct:[id number] Age/Sex: 49 / F ADM Date: 11/04/24 Loc: MAMMO Attending Dr: Merissa Roque Ordering Physician: Merissa Roque Results: 1Negative Date of Service: 11/04/24 Follow Up: 1 Year From Orig inal Mammogram Procedure(s): MM tomosynthesis screening BI Accession Number(s): [id number] cc: Merissa Roque; Jared Cano MD EXAMINATION: [...] Lyubov Douglas DO 11/11/2024 04:01 PM EST RP Dictated By: Lyubov Douglas DO Signed By: <Electronically signed by Lyubov Douglas DO in OV> 11/11/24 1601 DD/ 1100 TD/TT: 11/04/24 1125 Security Screener: Procedure Note Donotjordaninterpreter, Image - 11/11/2024 [facility] [address] [place], [place] [address] Mammography Report Signed Patient: Annmarie Cortez MMR#: [id number] : 1975Acct:[id number] Age/Sex: 49 / FADM Date: 11/04/24 Loc: HO.MAMMO Attending Dr: Merissa Roque Ordering Physician: Meirssa RoqueResults: 1Negative Date of Service: 11/04/24Follow Up: 1 Year From Orig inal Mammogram Procedure(s): MM tomosynthesis screening BI Accession Number(s): [id number] cc: Merissa Roque; Jared Cano MD EXAMINATION: [...] their next mammogram. Electronically signed by: Lyubov Doulgas DO 11/11/2024 04:01 PM EST RP Dictated By: Lyubov Douglas DO Signed By: <Electronically signed by Lyubov Douglas DO in OV> 11/11/24 1601 DD/ 1100 TD/TT: 11/04/24 1125 Security Screener: us Merissa Roque NP IMG BI PROCEDURES Edited Result - Final * (ABNORMAL) Lipid Panel, Standard (12/24/2023 8:30 AM EST) Triglycerides 54 <150 mg/dL [facility] Comment:Desirable Triglyceri de: less than 150 mg/dLBorderline High Triglyceride 150-199 mg/dLHigh Triglyceride: 200-499 mg/dLVery High Triglyceride: greater than or equal to 5OO mg/dL Cholesterol 190 <200 mg/dL [facility] Comment:Desirable Cholestero l: less than 200 mg/dLBorderline High Cholesterol: 200-239 mg/dLHigh Cholesterol: greater than 239 mg/dL LDL Cholesterol Calculated 110(H) <100 mg/dL [facility] Comment:Desirable LDL: less than 100 mg/dLNear Optimal/Above Optimal LDL: 110- 129 mg/dLBorderline High LDL: 130-159 mg/dLHigh LDL: 160-189 mg/dLVery High LDL: greater than or equal to 190 mg/dL HDL Cholesterol 70 >40 mg/dL [facility] Comment:Desirable HDL: great er than 40 mg/dL Note: This HDL assay may give artificially low results in patients with liver disease. Blood Venous blood specimen / Unknown 12/24/2023 8:30 AM EST 12/24/2023 11:27 AM EST us Merissa Roque NP LAB BLOOD ORDERABLES Final Resu lt [facility] [address] [place], [place] [phone] * Pap Smear (06/17/2023 10:25 AM EDT) 06/17/2023 10:2 5 AM EDT 06/19/2023 8:50 AM EDT Narrative [facility] - 07/04/2023 2:10 PM EDT ----- ------- Name: Annmarie Cortez Age/Sex: 48/F : 1975 Unit#: [id number] Attend Dr: Celia Contreras [facility] Re06/17/23 Status: DEP REF Location: [facility] Disch: ----- ------- SPEC : [id number] RECD: 06/19/23 STATUS: MELISSA HARDEN NUM: [id number] VALERIE: 06/17/23-1024 [facility] DR: Celia Contreras [facility] ENTERED: 06/19/23 SP TYPE: Pap Smr OTHR DR: Lita Angel MD ORDERED: Pap Smear Interpretation Satisfactory for evaluation. Negative for intraepithelial lesion or malignancy. HPV mRNA E6/E7: NOT DETECTED This assay detects E6/E7 viral messenger RNA (mRNA) from 14 high-risk HPV types (16, 18, 31, 33, 35, 39, 45, 51, 52, 56, 58, 59, 66, 68) HPV testing performed by [employer], [place], [place]. See reference laboratory portion of the EMR for entire report. Clinical Information LMP:05/15/23 Previous PAP test:2018, WNL Material Received ThinPrep-Cervical Copies To: Lita Angel MD [address] [place] [address] [phone] [address] Ewign [address] [place] [address] [phone] ----- ------- Signed (signature on file) Kristina Knight 07/04/23 1410 ----- ------- END OF REPORT [facility] External Provider LAB [facility] ORDERABLES Final Result [facility] [address] [place] [address] [phone] from Last 3 Months or Most Recently Relevant to Health Maintenance Insurance [facility] , [address] [place] [address] Care Teams Logistics And Planning Manager Relationship Specialty Start Date End Date Merissa Roque NP [address] [place] [phone] PCP - General Family Medicine 12/22/23
--- OUTSIDE RECORDS SUMMARY | 2025-08-22 11:33 | XMS_ITS | Encounter Summary ---
Author Organization [employer] Address [address] [facility] 7t [place] [address] Care Team Providers Care Construction Code Administrator Name Role Phone Merissa Roque NP Primary Care Provider [phone] Reason for Visit * Reason Comments Med Refill Encounter Details Date Type Department Care Team ([facility] st Contact Info) Description 05/07/2025 Refill [facility] [address] [place] [address] Pedro Lara MD [address] [place] [address] Social History Tobacco Use Types Packs/Day Years [...] documented as of this encounter Care Teams Construction Code Administrator Relationship Specialty Start Date End Date Merissa Roque NP [address] [place] [address] PCP - General Family Medicine 12/22/23 documented as of this encounter
== END 2025-08-22 11:43 | disposition home or self-care (01) ==
LOC: HO.HWSM 09:51
PROVIDERS: Visit Provider Advanced Practice Midwife
DX: Z01.419 Encounter for gynecological examination (general) (routine) without abnormal findings (principal); N95.1 Menopausal and female climacteric states
CPT/HCPCS: 99396; 99459

== ENCOUNTER 2025-09-01 13:31 | Outpatient (AMB) | payer OTHER, SELFPAY ==
[2025-09-01 13:37] VITALS: BP 100/56; PULSE 92; O2SAT 96; BMI 33.5
--- NOTE | 2025-09-01 13:37 | A.OFFVIS_ITS ---
Vital Signs 09/01/25 13:37 Height 5 ft 5 in Weight 201 lb 2 oz BMI 33.5 BP 100/56 L Blood Pressure Location Rt brachial Position Sitting Pulse 92 Pulse Source Pulse Oximeter Pulse Oximetry (%) 96 Oxygen Delivery Method Room Air Intake Visit Reasons: asthma Allergies penicillin V Allergy (Unknown, Verified 09/01/25 13:41) rash HPI HPI asthma: Details: Annmarie is a pleasant 50 year old female, former minimal smoker, with underlying asthma. She was referred by PCP for pulmonary evaluation. She was diagnosed with asthma as an adult, never requiring intubation. She reports no current symptoms but has had pneumonia in November, which was her last respiratory infection. Reports multiple URIs over the last few years. The patient has a history of using Advair for asthma management, which was changed to Symbicort in July due to inadequate control. She is currently using Symbicort once daily. The patient reports seasonal allergies, particularly worsening in the spring, and is currently taking Zyrtec and Flonase daily. She has not undergone allergy testing but is considering it to identify specific triggers. The patient denies any significant family history of asthma or respiratory issues but reports secondhand smoke exposure as a child. She also experienced a severe reaction to dust and cleaning chemicals recently, which exacerbated her asthma symptoms. [facility] Medical History (Updated 09/04/25 @ 08:52 by Lisa Vásquez NP) Asthma Family History Mother HTN (hypertension) Diabetes Father HTN (hypertension) Sleep apnea Social History (Updated 09/01/25 @ 13:41 by Alexandra Huizar CMA) Alcohol intake: never Patient Tobacco Use Status: Former Tobacco user Gender identity: Female Female Reproductive History Menstrual Age of Menarche: 9 Review of Systems Const Denies chills, Denies excessive sweating, Denies fever(s), Denies headache(s) and Denies night sweats Eyes Denies dry eyes, Denies irritation and Denies itchy eyes ENT Reports Normal hearing present, Denies headache(s), Denies nasal discharge, Denies post nasal drip and Denies sore throat Card Denies chest pain, Denies chest pain at rest, Denies chest pain with activity, Denies claudication, Denies leg edema, Denies dyspnea, Denies dyspnea on exertion, Denies orthopnea and Denies paroxysmal nocturnal dyspnea Resp Denies chest congestion, Denies cough, Denies excessive phlegm production, Denies pain on inspiration, Denies pain with cough, Denies dyspnea, Denies dyspnea on exertion, Denies stridor and Denies wheezing Musc Denies myalgias Neuro Reports Normal hearing present and Denies headache(s) Endo Denies excessive sweating Marin/Lymph Denies lymphadenopathy Aller/Immun Denies itchy eyes, Denies seasonal rhinorrhea and Denies wheezing Physical Exam Vital Signs: Last Vital Signs Pulse 92 09/01/25 13:37 BP 100/56 L 09/01/25 13:37 Pulse Ox 96 09/01/25 13:37 Oxygen Delivery Method Room Air 09/01/25 13:37 BMI result Body Mass Index 33.5 Const General: cooperative, healthy appearing, comfortable, no acute distress, well developed and alert Orientation/consciousness: patient oriented x3 Limitations: no limitations HEENT Head: Yes normal to inspection, Yes normocephalic and Yes atraumatic Ears: hearing grossly normal bilaterally and external ears normal Eyes General: appearance normal, both eyes and all related structures Eyelids: Yes eyelids normal Sclerae: sclerae normal EOM: EOMs intact bilaterally Neck Neck: Yes normal visual inspection and Yes no lymphadenopathy Lymphatic: no lymphadenopathy noted Chest Chest palpation & inspection: normal inspection of the chest Resp Effort & Inspection: normal respiratory effort, able to speak in complete sen tences, no audible wheezes, no cough, no stridor, not tachypneic, no tripod positioning and no use of accessory muscles Auscultation: diminished lung sounds Cardio Jugular venous distension: no JVD Rate: regular rate Rhythm: regular rhythm Skin Other: warm, dry General skin exam: no rashes or lesions noted Neuro General: patient oriented x3 Cranial nerves: Yes Normal hearing present Cognition (Neuro): normal cognition Gait exam (Neuro): Normal gait present Extrem General: Yes normal to inspection, Yes capillary refill normal, Yes no clubbing, cyanosis or edema and Yes no pedal edema Psych Appearance: grossly normal and well kempt Speech and movement: Normal speech and movement present and Clear speech present Affect: normal affect Attitude: cooperative Thought process: Normal thought process present Thought content: Normal thought content present Insight: Good insight present (Psych) Judgement: Good judgement present (Psych) Assessment & Plan Assessment & Plan (1) Asthma: Code(s): J45.909 - Unspecified asthma, uncomplicated Category: Medical (2) Environmental allergies: Code(s): Z91.09 - Other allergy status, other than to drugs and biological substances Category: Medical Plan The patient will continue using Symbicort, increasing to twice daily for asthma management. If symptoms worsen, she is advised to increase the dose to two puffs twice daily and use albuterol as needed for wheezing or chest tightness. The patient is currently taking Zyrtec and Flonase daily for allergy management. Allergy testing is recommended to identify specific triggers and tailor treatment accordingly. May consider adding Singulair if necessary. The patient is advised to avoid known triggers such as dust and cleaning chemicals to prevent exacerbations. Will send for PFT to assess severity of obstructive defect. Recent CXR unremarkable. All questions were answered and patient is in agreement of plan. Will follow up in 8-10 weeks or sooner if needed. Orders: Orders Resp Allergy Profile Region I 09/01/25 Z91.09 - Other allergy status, other than to drugs and biological substances Immunoglobulin E 09/01/25 Z91.09 - Other allergy status, other than to drugs and biological substances Complete Blood Count Auto Diff 09/01/25 Z91.09 - Other allergy status, other than to drugs and biological substances PFT pulmonary function test Today J45.909 - Unspecified asthma, uncomplicated Coding Level of Care Code New Pt Level 4 (33282) Diagnoses Asthma J45.909 Environmental allergies Z91.09
--- OUTSIDE RECORDS SUMMARY | 2025-09-01 15:38 | XMS_ITS | Encounter Summary ---
Author Organization [employer] Address [address] [facility] 7t [place] [address] Care Team Providers Care Dining Car Waiter/Waitress Name Role Phone Nuvia Irwin FACTORER Primary Care Provider [phone] Merissa Roque SOCIAL MEDIA COMMUNITY MANAGER Primary Care Provider [phone] Reason for Visit * Reason Onset Date Comments r/s appt 08/25/2023 Encounter Details Date Type Department Care Team (Late st Contact Info) Description 08/25/2023 Telephone [facility] [address] [place] [address] [place] [facility] [address] [place] [address] r/s appt Social History Tobacco Use Types [...] on filedocumented in this encounter Care Teams Dining Car Waiter/Waitress Relationship Specialty Start Date End Date Nuvia Irwin FNP [address] [place] [address] PCP - General Family Medicine 12/30/22 11/25/23 Merissa Roque NP [address] [place] [address] PCP - General Family Medicine 12/22/23 documented as of this encounter
--- OUTSIDE RECORDS SUMMARY | 2025-09-01 15:38 | XMS_ITS | Data Portability ---
Author Organization [facility] - [facility], Allergy Address [address] [place] [phone] Care Team Providers Care Body Mechanic Apprentice Name Role Phone Unavailable Primary Care Provider [...] this plan and has no further questions. [email or web address] Not available 08/05/2024 14:31:11 Plan of Treatment Reminders Order Date Submit Date Provider Last Modified By Organization Details Last Modified Time Details Appointments None recorded. Lab None recorded. Referral None recorded. Procedures None recorded. Surgeries None recorded. Imaging CT, temporal bone, w/o contrast 2023 024 [facility], [address] [place] [address], [place], [phone], 15:28:37 Medication Orders None recorded. Patient TargetsNo targets recorded. Patient InstructionsNo instructions recorded. Reason for Referral None Reported. Results Created Date Observation Date Name Description Value Unit Range Abnormal Flag Note LastModifiedBy Organization Detail LastModifiedTime 08/05/20 24 audio gram No observ ation record ed. [email or web address] Not Available 08/2024 14:03:31 08/05/[address], tempo ral bone, w/o contr ast No observ ation record ed. [email or web address] [facility] [address], [place], [address], 08/05/2024 14:31:33 Result Notes None recorded. Problems Name Problem SNOMED Code Status Onset Date Resolution Date Notes Provider Name and Address Organization Details Recorded Time Abnormal auditory perception 56478172 Active 024 Rossi greenberg [place] [facility] 4 13:03:12 Problem Notes None recorded. Procedures Surgical History Date Name Laterality Status Provider Name and Address Organization Details Recorded Time 08/05/2024 Comp Audio with Tymps - 74437 & 80829 completed Rossi Langley [place] [facility] 08/05/2024 13:03:06 Imaging Results None recorded. Procedure Notes None recorded. Medical Equipment None Reported. Allergies Allergen ID Allergen Name Allergen Category Reaction Reaction Severity Criticality Documentation Date Start Date Code Code System Note Provider Name and Address Organization Details Recorded Time 819209 Product containin g penicilli n (product) medicatio n Not available Not available Not available 08/05/2024 31197 8001 SNOMED Robbimi Carlos greenberg [place] [facility] 4 13:36:42 Medications Name Sig Start [...] Updated DateTime 08/05/2024 165.1 cm 32.1 kg/m2 46675.33 g Chayito Gonzalez [facility] 08/05/2024 13:36:23 Social History None recorded. [...] ICD10 Code Diagnosis IMO Codes Diagnosis Note [id number] SILAS HERNANDEZ PA-C [facility] [address] [phone] 08/05/2024 12:41:07 08/05/2024 14:00:23 Abnormal auditory perception 76334559 H93.299 Audiologic al evaluation results: Right ear: [...] Vazquez Member ID Guarantor Name 08/05/2024 1 [facility] [id number] Annmarie Cortez [id number] Annmarie Cortez Notes Date Note Type Note [...] 10 to 15 years. SILAS HERNANDEZ PA-C [address] [place] [address], [place], [phone], [facility] - [facility] 08/05/2024 14:32:34 OBGyn Episode No OBEpisode recorded.
--- OUTSIDE RECORDS SUMMARY | 2025-09-01 15:38 | XMS_ITS | Encounter Summary ---
Author Organization [employer] Address [address] [facility] [address] [place] [address] Care Team Providers Care Director Biology Name Role Phone Merissa Roque NP Primary Care Provider [phone] Reason for Visit * Reason Comments Med Refill Encounter Details Date Type Department Care Team ([facility] st Contact Info) Description 05/07/2025 Refill [facility] [address] [place] [address] Pedro Lara MD [address] [place] [address] Social History Tobacco Use Types Packs/Day Years [...] documented as of this encounter Care Teams Director Biology Relationship Specialty Start Date End Date Merissa Roque NP [address] [place] [address] PCP - General Family Medicine 12/22/23 documented as of this encounter
--- OUTSIDE RECORDS SUMMARY | 2025-09-01 15:38 | XMS_ITS | Clinical Summary ---
Author Organization [employer] Address [address] [facility] [address] [place] [address] Care Team Providers Care Financial Accountant Name Role Phone Merissa Roque NP Primary Care Provider [phone] Allergies Active Allergy Reactions Criticality Noted Date Comments Penicillin G 12/23/2023 rash Medications ibuprofen 400 MG tablet TAKE 1 TABLET BY MOUTH EVERY 6 TO 8 HOURS NEEDED 90 tablet 11/04/19 24 Active fluticasone (Flonase Allergy Relief) 50 MCG/ACT nasal spray Administer into affected nostril(s). 11/04/19 20 Active naloxone (Narcan) 4 mg/0.1 mL nasal spray FOR SUSPECTED OPIOID OVERDOSE. SPRAY 0.1mL IN ONE NOSTRIL. REPEAT IN ALTERNATE NOSTRIL 2-3 MINUTES IF NEEDED. SEEK MEDICAL ATTENTION IMMEDIATELY EVEN IF PATIENT RESPONDS. 06/25/20 23 Active Multiple Vitamin (MULTIVITAMIN ADULT PO) Daily, 0 Refills, Maintenance, 08/21/21 10:51:00 EDT, Partial fill upon patient request if the prescription is for a schedule II opioid drug. 08/21/20 21 Active hydrocortisone 2.5 % cream Apply pea sized amount to skin bid for 1 week 15 g 03/01/20 24 Active ondansetron ODT (Zofran-ODT) 4 MG disintegrating tablet Take 1 tablet (4 mg) by mouth every 8 (eight) hours if needed for nausea or vomiting. 20 tablet 2 07/07/20 24 Active Blood Pressure kit 1 each 2 times daily. 1 kit 12/20/19 25 026 Active albuterol (2.5 MG/3ML) 0.083% nebulizer solution Take 3 mL (2.5 mg) by nebulization every 6 (six) hours if needed for wheezing or shortness of breath. 75 mL 3 12/20/19 25 026 Active azithromycin (Zithromax Z-Wes) 250 MG tablet Take 2 tablets once on day 1, then 1 tablet 1x/day for 4 days. 6 tablet 12/20/19 Active Spacer/Aero-Holdin g Chambers (OptiChamber Erika) misc 1 each every 4 (four) hours if needed (asthma). 1 each 12/20/19 Active Nebulizers misc 1 kit Every 4-6 hours as needed (shortness of breath, wheezing). Accerlon nebulizer given in walk in 12/20/24 education provided Active cetirizine (ZyrTEC) 10 MG tabletIndications: Seasonal allergies TAKE 1 TABLET BY MOUTH EVERY DAY 30 tablet 2 01/13/20 Active albuterol 108 (90 Base) MCG/ACT inhaler INHALE 2 PUFFS BY MOUTH EVERY 4 TO 6 HOURS NEEDED 8.5 g 3 06/14/20 Active hydroCHLOROthiazid e 12.5 MG tabletIndications: HTN (hypertension), benign TAKE 1 TABLET BY MOUTH EVERY DAY 30 tablet 1 07/26/20 Active budesonide-formote rol (Symbicort) 160-4.5 MCG/ACT inhaler Inhale 2 puffs in the morning and at bedtime. Rinse mouth with water after use to reduce aftertaste and incidence of candidiasis. Do not swallow. 1 each 5 07/31/20 25 026 Active predniSONE (Deltasone) 20 MG tablet Take 2 tablets (40 mg) by mouth Once per day for 4 doses. 8 tablet 07/31/20 25 025 Active Problems Problem Noted Date Diagnosed Date [...] 12/23/2023 Lung mass 12/23/2023 Overview (12/23/2023): [facility] CT: 3mm, noncalcified, follow-up depends they [...] Dizziness 12/23/2023 Overview (12/23/2023): [facility] enounter summary February 2012 Assessment & Plan (02/23/2024 [...] Description 07/31/2025 9:00 AM EDT Office Visit [facility] [address] [place] [phone] Pedro Salguero MD Mild intermittent asthma with exacerbation (Primary Dx); HTN (hypertension), benign 07/31/2025 Travel 07/26/2025 Refill [facility] [address] [place] [address] Merissa Roque NP HTN (hypertension), benign 06/14/2025 Refill [facility] [address] [place] [address] Pedro Salguero MD from Last 3 Months Immunizations Immunization [...] series) 08/13/2012 07/16/2012 Depression Screening 12/23/2024 12/23/2023, 02/28/20 24 SDOH Screening 12/23/2024 12/23/2023 Zoster Vaccines (1 of 2) 2025 COVID-19 Vaccine ( season) 2025 10/10/2021, 12/06/2020, 11/08/2020 Influenza Vaccine [...] AM EDT Narrative 07/31/2025 9:34 [place] [address] XRay Report Signed Patient: Annmarie Cortez MR#: [id number] : 1975 Acct:[id number] Age/Sex: 50 / F ADM Date: 07/31/25 Loc: HO.HHCX Attending Dr: Pedro Salguero MD Ordering Physician: PEDRO SALGUERO MD Date of Service: 07/31/25 Procedure(s): XR chest 2V Accession Number(s): [id number] cc: PEDRO SALGUERO MD Reason for Exam: [...] in OV> 07/31/25930 DD/ 7 TD/TT: 07/31/25927 Railway Station Manager: Procedure Note Donotuseinterpreter, Image - 07/31/2025 [place] [address] XRay Report Signed Patient: Annmarie Cortez MMR#: [id number] : 1975Acct:[id number] Age/Sex: 50 / FADM Date: 07/31/25 [facility] Dr: Pedro Salguero MD Ordering Physician: PEDRO SALGUERO MD Date of Service: 07/31/25 Procedure(s): XR chest 2V Accession Number(s): [id number] cc: PEDRO SALGUERO MD Reason for Exam: [...] in OV> 07/31/25930 DD/ 7 TD/TT: 07/31/25927 Railway Station Manager: Pedro Salguero MD IMG XR PROCEDURES Final Result * Cologuard?? colon cancer screening (12/17/2024 10:05 AM EST) Cologuard Result Negative Negative 12/21/19 7:53 AM EST [facility] (IA #:[id number]) Comment: NEGATIVE TEST RESULT. A negative Cologuard [...] screened with both Cologuard and colonoscopy. (Cyndie Roberto al, N Engl J Med 2014;370(14):5063-0129) The normal value (reference range) for this assay is negative. COLOGUARD RE-SCREENING RECOMMENDATION: Periodic colorectal cancer screening is an important part of preventive healthcare for asymptomatic individuals at average risk for colorectal cancer. Following a negative Cologuard result, the [place] Cancer Society and U.S. Multi-Society Task Force screening guidelines recommend a Cologuard re-screening interval of 3 years. References: [place] [employer] Guideline for Colorectal Cancer Screening: https://www.cancer.org/cancer/kfhod-lcoumf-nkcnpw/ucmtwksui-qulhdlxch-czwietg/ac s-rec ommendations.html.; Minor DK, Sherine CR, Soo PhelpsK, Colorectal Cancer Screening: Recommendations for Physicians and Patients from the U.S. Multi-Society Task Force on Colorectal Cancer Screening , Am J Gastroenterology 2017; 112:5665-5551. TEST DESCRIPTION: Composite algorithmic analysis of stool [...] screened with both Cologuard and colonoscopy. (Cyndie Roberto al, N Engl J Med 2014;370(14):3815-2059.) Cologuard may produce a false negative or false positive result (no colorectal cancer or precancerous polyp present at colonoscopy follow up). A negative Cologuard test result does not guarantee the absence of CRC or advanced adenoma (pre-cancer). The current Cologuard screening interval is every 3 years. ([place] Cancer Society and U.S. Multi-Society Task Force). Cologuard performance data in a 10,000 patient pivotal study using colonoscopy as the reference method can be accessed at the following location: www.[employer]/results. Additional description of the Cologuard test process, warnings and precautions can be found at www.[employer]. Stool specimen (specimen) 12/17/2024 10:05 AM EST 12/19/2024 11:12 AM EST [facility] LAB MOLECULAR DIAGNOSTICS ORDER SHONDA Final Result [facility] (CLIA #:[id number]) [address] [place] [address], * Hepatitis C Antibody with Reflex to HCV, RNA, Quantitative, Real-Time PCR (11/09/2024 11:45 AM EST) Hepatitis C Antibody Nonreactive Nonreactive [facility] Comment:Antibodies to HCV no t detected; does not exclude early acuteHCV infection. Blood Venous blood specimen / Unknown 11/09/2024 11:45 AM EST 11/09/2024 1:05 PM EST [facility] LAB BLOOD ORDERABLES Final Resu lt Performing Organization Address [facility] Co de Phone Number [facility] [address] [place] [address] [phone] * HIV-1/2 Antigen and Antibodies, Fourth Generation, with Reflexes (11/09/2024 11:45 AM EST) HIV AB/AG Nonreactive Nonreactive [facility] Comment:HIV-1 p24 Ag and/or HIV-1/HIV-2 Ab not detected.A test result that is nonreactive does not exclude thepossibility of exposure to or infection with HIV-1 and/orHIV-2. Nonreactive results in this assay for individualswith prior exposure to HIV-1 and/or HIV-2 may be due toantigen and antibody levels that are below the limit ofdetection of this assay.[employer] HIV Ag/Ab Combo assay result andsupplemental assay results should be interpreted inconjunction with the patient's clinical presentation,history and other laboratory results. If the results areinconsistent with clinical evidence, additional testing issuggested to confirm the result. Blood Venous blood specimen / Unknown 11/09/2024 11:45 AM EST 11/09/2024 1:05 PM EST [facility] B[facility] ORDERABLES Final Resu lt Performing Organization Address [facility] Co de Phone Number [facility] [address] [place] [address] [phone] * BI Mammogram Screening Tomosynthesis Bilateral (11/04/2024 11:00 AM EST) Anatomical Region Laterality Modality Breast Bilateral Mammography 11/04/2024 11:0 0 AM EST Narrative 11/11/2024 4:03 PM EST [facility] [address] [place] [address] Mammography Report Signed Patient: Annmarie Cortez MR#: [id number] : 1975 Acct:[id number] Age/Sex: 49 / F ADM Date: 11/04/24 Loc: HO.MAMMO Attending Dr: Merissa Roque Ordering Physician: Merissa Roque Results: 1Negative Date of Service: 11/04/24 Follow Up: 1 Year From Orig inal Mammogram Procedure(s): MM tomosynthesis screening BI Accession Number(s): [id number] cc: Merissa Roque; Jared Cano MD EXAMINATION: [...] by: Lyubov Douglas DO 11/11/2024 04:01 PM [facility] Dictated By: Lyubov Douglas DO Signed By: <Electronically signed by Lyubov Douglas DO in OV> 11/11/24 1601 DD/ 1100 TD/TT: 11/04/24 1125 Railway Station Manager: Procedure Note Donotuseinterpreter, Image - 11/11/2024 [facility] [address] [place] [address] Dr. [place], [place] [address] Mammography Report Signed Patient: Annmarie Cortez MMR#: [id number] : 1975Acct:[id number] Age/Sex: 49 / FADM Date: 11/04/24 Loc: HO.MAMMO Attending Dr: Merissa Roque Ordering Physician: Merissa RoqueResults: 1Negative Date of Service: 11/04/24Follow Up: 1 Year From Orig inal Mammogram Procedure(s): MM tomosynthesis screening BI Accession Number(s): [id number] cc: Merissa Roque; Jared Cano MD EXAMINATION: [...] 11/11/24 1601 DD/ 1100 TD/TT: 11/04/24 1125 Railway Station Manager: us Merissa Roque NATURAL SCIENCES PROFESSOR IMG BI PROCEDURES Edited Result - Final * (ABNORMAL) Lipid Panel, Standard (12/24/2023 8:30 AM EST) Triglycerides 54 <150 mg/dL [facility] Comment:Desirable Triglyceri de: less than 150 mg/dLBorderline High Triglyceride 150-199 mg/dLHigh Triglyceride: 200-499 mg/dLVery High Triglyceride: greater than or equal to 5OO mg/dL Cholesterol 190 <200 mg/dL [facility] Comment:Desirable Cholestero l: less than 200 mg/dLBorderline High Cholesterol: 200-239 mg/dLHigh Cholesterol: greater than 239 mg/dL LDL Cholesterol Calculated 110(H) <100 mg/dL [facility] Comment:Desirable LDL: less than 100 mg/dLNear Optimal/Above Optimal LDL: 110- 129 mg/dLBorderline High LDL: 130-159 mg/dLHigh LDL: 160-189 mg/dLVery High LDL: greater than or equal to 190 mg/dL HDL Cholesterol 70 >40 mg/dL [facility] Comment:Desirable HDL: great er than 40 mg/dL Note: This HDL assay may give artificially low results in patients with liver disease. Blood Venous blood specimen / Unknown 12/24/2023 8:30 AM EST 12/24/2023 11:27 AM EST Merissa Roque NP LAB BLOOD ORDERABLES Final Resu lt [facility] [address] [place] [phone] * Pap Smear (06/17/2023 10:25 AM EDT) 06/17/2023 10:2 5 AM EDT 06/19/2023 8:50 AM EDT Narrative [facility] - 07/04/2023 2:10 PM EDT ----- ------- Name: Annmarie Cortez Age/Sex: 48/F : 1975 Unit#: [id number] Attend Dr: Celia Contreras CNM Re06/17/23 Status: DEP REF Location: [facility] Disch: ----- ------- SPEC : [id number] RECD: 06/19/23 STATUS: MELISSA HARDEN NUM: [id number] VALERIE: 06/17/[address] [facility] [address]: 06/19/23 SP TYPE: Pap Smr OTHR DR: Lita Angel MD ORDERED: Pap Smear Interpretation Satisfactory for evaluation. Negative for intraepithelial lesion or malignancy. HPV mRNA E6/E7: NOT DETECTED This assay detects E6/E7 viral messenger RNA (mRNA) from 14 high-risk HPV types (16, 18, 31, 33, 35, 39, 45, 51, 52, 56, 58, 59, 66, 68) HPV testing performed by [facility], [place], [place]. See reference laboratory portion of the EMR for entire report. Clinical Information LMP:05/15/23 Previous PAP test:2018, WNL Material Received ThinPrep-Cervical Copies To: Lita Angel MD [address] [place] [address] [place]wing [address] [place] [phone] ----- ------- Signed (signature on file) Kristina Knight 07/04/23 1410 ----- ------- END OF REPORT [facility] External Provider LAB CYT STEPHEN ORDERABLES Final Result [facility] [address] [place] [address] [phone] from Last 3 Months or Most Recently Relevant to Health Maintenance Insurance , [address] [place] [address] * Guarantor: Annmarie Cortez Account Type Relation to Patient Date of Phone Billing Address Personal/Family Self [address] [place], [place] [phone] Care Teams Financial Accountant Relationship Specialty Start Date End Date Merissa Roque NP [address] [place] [phone] PCP - General Family Medicine 12/22/23
--- OUTSIDE RECORDS SUMMARY | 2025-09-01 15:38 | XMS_ITS | Encounter Summary ---
Author Organization 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 Name Role Phone Nuvia Irwin Primary Care Provider [phone] Merissa Roque NP Primary Care Provider [phone] Reason for Visit * Reason Comments Med Refill Encounter Details Date Type Department Care Team (Late st Contact Info) Description 09/24/2023 Refill [facility] [address] [place] [address] Lita Angel MD [address] [place] [address] Social History Tobacco Use Types Packs/Day Years [...] on filedocumented in this encounter Care Teams Automobile Or Truck Rental Dispatcher Relationship Specialty Start Date End Date Nuvia Irwin FNP [address] [place] [address] PCP - General Family Medicine 12/30/22 11/25/23 Merissa Roque NP [address] [place] [address] PCP - General Family Medicine 12/22/23 documented as of this encounter
== END 2025-09-01 14:08 | disposition home or self-care (01) ==
LOC: HO.HPSW 13:32
PROVIDERS: PCP Emergency Medicine; Visit Provider Nurse Practitioner Family
DX: J45.909 Unspecified asthma, uncomplicated (principal); Z91.09 Other allergy status, other than to drugs and biological substances
CPT/HCPCS: 99204

== ENCOUNTER 2025-09-01 13:31 | Outpatient (REF) | payer OTHER, SELFPAY ==
[2025-09-01 18:00] LABS: MANUAL DIFF FLAG NO
[2025-09-01 18:26] LABS: Hematocrit 39.8 % (37.0-47.0); Hemoglobin 13.0 g/dl (12.0-16.0); Imm Gran Abs Auto 0.02 X10*3/uL (0.00-0.03); Imm Gran Pct Auto 0.3 % (0.0-0.4); Lymphocytes Absolute Auto 1.7 X10*3/uL (1.2-4.9); Mean Corpuscular HGB Conc 32.7 g/dl (31.0-35.0); Mean Corpuscular Hemoglobin 30.7 pg (27.0-33.0); Mean Corpuscular Volume 94.1 fL (80.0-98.0); NRBC Abs Auto 0.000 X10*3/uL (0.0-0.012); NRBC Pct Auto 0.0 /100WBC (0.0-0.2); Platelet Count 282 X10*3/uL (160-400); Red Blood Count 4.23 X10*6/uL (4.20-5.50); White Blood Count 6.7 X10*3/uL (4.8-10.8)
[2025-09-05 07:42] LABS: Class Alternaria alternata 0; Class Aspergillus fumigatus 0; Class Bermuda Grass 0; Class Birch 0; Class Cat Dander 0; Class Cladosporium herbarum 0; Class Cockroach 0/1; Class Common Ragweed 0; Class Cottonwood 0/1; Class Derm. pterony 5; Class Dermatophagoides farinae 5; Class Dog Dander 0/1; Class Elm 0; Class Maple Box Elder 2; Class Mountain Cedar 0; Class Mouse Urine Protein 0; Class Mugwort 0; Class Oak 0; Class Penicillium crysogenum 0; Class Rough Pigweed 0; Class Sheep Sorrel 0; Class Sycamore 0; Class Timothy Grass 0; Class Walnut Tree 0; Class White Ash 0; Class White Mulberry 0; D002 - IgE D farinae 51.70 kU/L; E001 - IgE Cat Dander <0.10 kU/L; E005 - IgE Dog Dander 0.23 kU/L; G006 - IgE Timothy Grass <0.10 kU/L; I006-IgE Cockroach, German 0.28 kU/L; M002 - IgE Cladosporium herbar <0.10 kU/L; M003 - IgE Aspergillus fumigat <0.10 kU/L; M006 - IgE Alternaria alternat <0.10 kU/L; T001 IgE Maple/Box Elder 0.85 kU/L; T006 - IgE Cedar, Mountain <0.10 kU/L; T007 - IgE Oak, White <0.10 kU/L; T008 IgE Elm, American <0.10 kU/L; T010 - IgE Walnut <0.10 kU/L; T011 - IgE Maple Leaf Sycamore <0.10 kU/L; T014 - IgE Cottonwood 0.10 kU/L; T015 - IgE Ash, White <0.10 kU/L; T070 - IgE White Mulberry <0.10 kU/L; W001 - IgE Ragweed, Short <0.10 kU/L; W006 - IgE Mugwort <0.10 kU/L; W014 IgE Pigweed, Common <0.10 kU/L; W018 IgE Sheep Sorrel <0.10 kU/L
== END 2025-09-01 13:32 | disposition home or self-care (01) ==
LOC: HO.WFDLDS 13:31
PROVIDERS: PCP Emergency Medicine; Visit Provider Nurse Practitioner Family
DX: J45.909 Unspecified asthma, uncomplicated (principal); Z91.09 Other allergy status, other than to drugs and biological substances
CPT/HCPCS: 36415; 82785; 85025; 86003